=== PATIENT | female | born 1940 | race Caucasian/White ===

== ENCOUNTER 2023-12-07 18:42 | Inpatient (IN) | payer OTHER, SELFPAY ==
[2023-12-07] VITALS (24 sets, daily range): BP systolic 68–112; BP diastolic 38–90; BMI 28.8; BMI 29.6
--- NOTE | 2023-12-07 16:51 | ED.GENMED ---
History of Present Illness
General
Chief Complaint: Breathing Problem
Source: patient, records and ambulance crew
Time Seen by Provider: 12/07/23 16:42
Travel History
Have you had any contact with someone who has COVID-19?: Yes
Comment: self
Do you have any symptoms of coronavirus? Fever > 100 degrees, chills, cough, shortness of breath, sore throat, loss of taste or smell, muscle aches, or headache?: Yes
Symptoms:: sob
History of Present Illness
History of Present Illness:
83-year-old female with past medical history of dementia, previous stroke, hypertension, hyperlipidemia presenting to the emergency department via EMS from [facility] after testing positive for COVID 2 days ago, staff noticed patient becoming
more fatigued, difficulty breathing, generalized weakness and upon checking her pulse ox today noticed it was in the low 80s. Patient was placed on nasal cannula and route to the hospital and upon arrival was found to be at 81% on room air and
placed on 4 L via nasal cannula with good response into the low to mid 90s. Patient states she is feeling better since being started on the oxygen. She notes she has not been coughing very much. She is unsure if she was started on any oral
antiviral medications. She is also unsure of any fevers but notes no bowel or urinary symptoms or any other concerns.
Past History
Past History
ED Past Medical History: CVA, HTN, Hypercholesterolemia and Psychiatric
ED Past Surgical History: Other (Unknown)
Social History
Tobacco: Non-smoker
Alcohol: None
Drug: None
Personal:
Living: long term
Review of Systems
Review of Systems
All Other Systems: ROS reviewed and negative except as documented in HPI and ROS
Phy Exam
Physical Exam
Physical Exam:
GENERAL: Alert , in no apparent distress
EYE: conjunctiva clear
NECK: Supple, no significant adenopathy.
ENT: o/p clr, mmm.
CARDIAC: tachycardic rate and rhythm
LUNGS: Clear breath sounds bilaterally, no acute respiratory distress, no wheezes/rales/rhonchi, tachypneic
NEUROLOGICAL: Alert and oriented to place and self but unaware of the year or time
SKIN: Warm and dry, skin intact.
MUSCULOSKELETAL: well perfused.
PSYCH: Normal and appropriate interaction.
Scores
Heart Failure Risk
Heart Failure Risk Score: Not Applicable
Heart Score for Chest Pain Patients
STEMI patient?: Not applicable
Withdrawal Assessment of Alcohol
Withdrawal Assessment Completed?: Not applicable
Course
Orders/Labs/Results
Orders:
Orders
12/07/23 Dinner
Sodium, 2 Gram
At Your Request: Non-Participating
Fluid Restriction: 1440 mL/day (48 oz)
12/07/23 16:39
Electrocardiogram (*1) Urgent
Reason for Study: Other
Other Reason for Exam: Respiratory Distress
Cardiac Monitoring- Treatment ONCE
EKG- Treatment ONCE
IV Insert/Care/Rem.- Treatment PRN
O2 Therapy [RESP] Urgent
Titrate/Wean O2 to maintain O2 sat greater than (%): 93
Special Instructions: TO MAINTAIN CONTINUOUS O2 SATS >/= 93%
Pulse Ox/cont/shift [RESP] Urgent
Quantity: 1
Special Instructions: continuous pulse ox
12/07/23 16:45
Blood Culture Q30M
LIANNA Source: Blood/Venous
Specimen Description:
Comment: FROM SEPARATE SITES
Blood Culture Q30M
LIANNA Source: Blood/Venous
Specimen Description:
Comment: FROM SEPARATE SITES
12/07/23 16:46
Complete Blood Count/With Diff Urgent
Comprehensive Metabolic Panel Urgent
Iron Urgent
Lactic Acid Q4H
Comment: WITH 1ST SET OF BLOOD CULTURES,CANCEL 2ND LACTIC ACID IF FIRST <2
NT-proBNP Urgent
Total Iron Binding Urgent
Troponin I Urgent
12/07/23 16:49
CR Chest Portable - 1 View Urgent
Comment:
Reason For Exam: covid, hypoxia
Reason Study Needs to be Portable: Unable to Transport
12/07/23 16:50
Ferritin Urgent
Folate Urgent
Vitamin B12 Urgent
Comment: ADD ON
12/07/23 17:54
Furosemide [Lasix] 20 mg IV NOW STA
12/07/23 17:55
Potassium Chloride Powder [Klor-Con] 40 meq PO NOW STA
12/07/23 17:56
Admit/Transfer Patient As Directed
Co-Sign Provider:
Level of Care: Inpatient admission
Assign to:: IMU- Intermediate Care
Physician / Group: Adina
Diagnosis: Hypoxia, COVID, CHF
Reason for Hospitalization: oxygen, lasix
Expected length of stay greater than two midnights?: Yes
ELOS- Estimated Length of Stay in days: 3
I certify the patient meets the requirements for IP care: Yes
12/07/23 18:09
Code Status As Directed
Resuscitation Status: Do not resuscitate
Reached after discussion with pt or family/Healthcare POA: Yes
DNR Bracelet Application ONCE
12/07/23 18:34
Midodrine [ProAmatine] 5 mg PO NOW STA
12/07/23 18:37
Add On- LAB Routine
Tests Added?: iron, ferritin, tibc, folate, vit b12
12/07/23 18:48
COVID-19 Antigen Urgent
Source: Nasal Swab
12/07/23 22:00
Procalcitonin Urgent
PCT Algorithmm Indication: Respiratory
Troponin I Q6H
12/08/23 04:00
Troponin I Q6H
Abnormal Lab Results
12/07/23
16:46
WBC 18.7 H 10^3/uL
(4.8-10.8)
RBC 3.16 L 10^6/uL
(4.20-5.40)
Hgb 8.9 L g/dL
(12.0-16.0)
Hct 28.5 L %
(37.0-47.0)
MCHC 31.2 L g/dL
(33.0-37.0)
RDW 17.8 H %
(11.5-14.5)
Abs Immat Gran (auto) 0.2 H 10^3/uL
(0-0.05)
Absolute Neuts (auto) 15.8 H 10^3/uL
(1.4-6.5)
Absolute Monos (auto) 0.8 H 10^3/uL
(0.1-0.6)
Immature Gran % 1.1 H %
(0-0.5)
Neutrophils % 84.4 H %
(42.2-75.2)
Lymphocytes % 9.9 L %
(20.5-51.1)
Sodium 133 L mmol/L
(135-145)
Potassium 3.3 L mmol/L
(3.5-5.1)
Chloride 97 L mmol/L
(98-107)
BUN 39 H mg/dl
(7-17)
Glucose 109 H mg/dl
(70-99)
Calcium 7.8 L mg/dl
(8.4-10.2)
AST 39 H U/L
(14-36)
Alkaline Phosphatase 255 H U/L
(38-126)
Troponin I 0.502 H* ng/ml
Total Protein 4.9 L g/dl
(6.3-8.2)
Albumin 2.3 L g/dl
(3.5-5.0)
12/07/23 16:46
12/07/23 16:46
Vital Signs
Initial and Last Documented VS:
Initial Vital Signs
Pulse Ox
81
12/07/23 16:32
Last Documented Vital Signs
Temp Pulse Resp BP Pulse Ox
98.1 F 101 25 83/58 95
12/07/23 16:39 12/07/23 19:00 12/07/23 16:39 12/07/23 19:00 12/07/23 17:33
MDM/Problems Addressed
Differential Diagnosis Includes:
COVID, viral pneumonia, given active infection and symptoms that only started 2 days ago I do not have concern for PE, electrolyte disturbance
MDM/Problems Addressed:
83-year-old female with known COVID presenting to the emergency department for gradually worsening symptoms over the last 2 days, found to be hypoxic at the nursing facility and confirmed hypoxia on arrival here. Patient currently on 4 L with
improved oxygen saturation. Will continue with the 4 L for the time being. Lab work ordered. Anticipate admission.
*Radiology
Radiology exam reviewed: radiology read reviewed
*Pulse Oximetry
Patient hypoxic: yes
*EKG
Interpreted by ED Provider?: Yes
Comparison EKG: no comparison EKG present
Heart Rate: 95
Rate: normal
Rhythm: sinus arrhythmia
Interval: long QT
Ischemia: no ischemia
*Supervisor [employer] Interpretation
Rate: normal
Rhythm: sinus
*Critical Care Note
Total Time (30-74mins, 75-104mins- exclusive of procedures): Not Applicable
Patient Management
Discussion with other providers: Hospitalist
Escalation/DeEscalation of care consider admission/obs:
Hospitalist is aware and accepts patient for continued evaluation and treatment. Lab work was noted for leukocytosis with a leftward shift. Patient's chemistry reveals an elevated BNP and troponin. I do suspect there is a large component of
demand ischemia related. Chest x-ray shows small bilateral pleural effusions. Will admit to telemetry. Patient be kept on O2 for supportive care given her hypoxia.
ED Attending Note
-
Portions of this chart may have been created with voice recognition software.� Occasional wrong word or��sound alike� substitutions may have occurred due to the inherent limitations of voice recognition software.
Discharge Plan
Departure
Patient Disposition: Admit
Date of Disposition: 12/07/23
Time of Disposition: 17:13
Presentation/result/management discussed w/ accepting MD/DO: Hospitalist
Discharge Problem:
COVID-19, Hypoxia
Interventions
Interventions:
*Risk Screen - Suicide Last Done: 12/07/23 16:37
*General Assessment Last Done: 12/07/23 16:37
*Neglect/Abuse Screening Last Done: 12/07/23 16:37
ED- Fall Risk Assessment Last Done: 12/07/23 16:40
*ED COVID-19 Vaccine History Last Done: 12/07/23 16:37
ED- Cardiac Assessment Last Done: 12/07/23 16:40
ED- Pulmonary Assessment Last Done: 12/07/23 16:40
[2023-12-07 16:56] LABS: % Basophils 0.2 % (0-2); % Eosinophils 0.2 % (0-6); % Immature Granulocytes 1.1 % (0-0.5); % Lymphocytes 9.9 % (20.5-51.1); % Monocytes 4.2 % (1.7-9.3); % Neutrophils 84.4 % (42.2-75.2); Absolute Immature Granulocytes 0.2 10^3/uL (0-0.05); Absolute Lymphocytes 1.9 10^3/uL (1.2-3.4); Absolute Monocytes 0.8 10^3/uL (0.1-0.6); Absolute Neutrophils 15.8 10^3/uL (1.4-6.5); Hematocrit 28.5 % (37.0-47.0); Hemoglobin 8.9 g/dL (12.0-16.0); Mean Corp Hgb Conc. 31.2 g/dL (33.0-37.0); Mean Corpuscular Hgb 28.2 pg (27.0-31.0); Mean Corpuscular Volume 90.2 fL (81.0-99.0); Mean Platelet Volume 8.8 fL (7.4-10.4); Nucleated Red Blood Cells % 0.3 %; Platelet Count 362 10^3/uL (130-400); Red Blood Cell Count 3.16 10^6/uL (4.20-5.40); Red Cell Dist. Width 17.8 % (11.5-14.5); White Blood Cell Count 18.7 10^3/uL (4.8-10.8)
[2023-12-07 17:08] LABS: Lactic Acid 1.5 mmol/L (0.7-2.0)
[2023-12-07 17:09] LABS: ALT (SGPT) 18 U/L (0-35); AST (SGOT) 39 U/L (14-36); Albumin 2.3 g/dl (3.5-5.0); Alkaline Phosphatase 255 U/L (38-126); Blood Urea Nitrogen 39 mg/dl (7-17); Calcium 7.8 mg/dl (8.4-10.2); Carbon Dioxide 29 mmol/L (22-30); Chloride 97 mmol/L (98-107); Estimated Creatinine Clearance 51 ml/min; Glucose 109 mg/dl (70-99); Potassium 3.3 mmol/L (3.5-5.1); Sodium 133 mmol/L (135-145); Total Bilirubin 0.9 mg/dl (0.2-1.3); Total Protein 4.9 g/dl (6.3-8.2); eGFR > 60.00
[2023-12-07 17:26] LABS: NT-proBNP > 27000 pg/ml; Troponin I 0.502 ng/ml
--- NOTE | 2023-12-07 17:53 | HPS.HSE ---
Addendum entered and electronically signed by Roberth Holden MD 12/07/23 18:38:
I saw and examined the patient.
The PROPERTY CLERK or PA's note was reviewed and I agree with the note.
Comment: 83 y/o F, hx of dementia, stroke, HTN, HLD, recent intracranial hemorrhage about 3 months ago presents to ER from SNF with COVID+ test. Her Roomate was positive. Staff noticed patient becoming more fatigued, tired, with SOB. Her sats were
80s, recovered to mid 90s on 4L NC. Patient felt better after O2 application. No fever/chills, no CP.
In ER, CXR showing mild viral PNA vs CHF. Also patient with elevated BNP and given IV Lasix. Admitted for further management.
Physical Exam
General:�Comfortable and Conversant
HEENT:�Anicteric, Moist mucous membranes and Oxygen (Nasal Cannula)
Respiratory:�Clear (Anteriorly) and Non Labored Respirations
Cardiac:�S1/S2, Irregular Rhythm and Tachycardia (Slightly)
GI:�Soft, Non Tender and Non Distended
Rectal:�Deferred by Provider
Musculoskeletal:�No Clubbing, No Cyanosis and Other (+3 pitting edema bilateral lower extremities)
Skin:�Warm and Dry
Neuro:�Awake, Alert and Other (Right hemiparesis)
Assessment:
Acute hypoxic respiratory failure, multifactorial from COVID-19 infection, acute CHF
- currently on 4L, never O2 dependant, wean O2 as treatment evolves
Acute CHF, unknown subtype
Non-OH trop elevation in setting of Acute CHF, COVID, Hypoxia
- IV Lasix 20mg daily - requires intensive monitoring
- I/Os, weights, Lytes
- Cardiology consult
- trend troponin
- can use midodrine for BP support and may need pressors
COVID-19 infection
Leukocytosis
- CXR showing mild viral PNA
- isolation
- start Decadron
- consult ID for additional recs
- check cultures and procal, if positive, consider Abx
- supportive care
Hypokalemia
Hypervolemic hyponatremia
- supplement K+
- follow BMP
Parox A. Fib
- continue BB
- no OAC due to hx of ICH
Hx of intracranial hemorrhage with residual asphasia/dysphasia
- obtain records
- continue Keppra prophylaxis
- PT/OT/ST
anemia of unspecified chronicity
- obtain records
Hypothyroidism - continue LT4
Bipolar disorder
Anxiety/ADHD/Depression
- continue Trazodone/Zyprexa
- monitor for signs of agitation/psychosis from steroids
HLD - statin
Essential HTN
- hold Triamterene/HCTZ
DVT ppx: Lovenox
Code: Full
Original Note:
Family Physician
-
Family Physician: Jermaine Palumbo
Chief Complaint
-
Shortness of Breath
History of Present Illness
Patient is an 83 y/o female past medical history of recent intracranial hemorrhage, a-fib, hypertension, bipolar disorder and breast cancer who presents with hypoxia. Apparently patient's roommate at the [facility] developed upper respiratory symptoms a
few days ago and then test positive for COVID. The facility tested the patient 2 day ago at which time she tested positive, but she was not having any symptoms at that time. Daughter at the bedside notes they placed the patient on oxygen last
night due to increased shortness of breath. Daughter notes increased lower extremity edema. Patient has some residual expressive aphasia following her recent stroke therefore some history is limited. Patient denies any prior history of
Asthma/COPD, CAD or CHF.
Medical History
Past Medical History
Past Medical History: Reports Other
Additional Past Medical History:
Intracranial Hemorrhage with Residual Right Hemiparesis
Atrial Fibrillation
Essential Hypertension
Hyperlipidemia
Hypothyroidism
Bipolar Disorder
Stage IV Breast CA
Past Surgical History: Reports Other
Social History
Tobacco: Non-smoker
Alcohol: None
Living: Penitentiary
Family History
Family History: Not pertinent
Allergies / Home Medications
Allergies reflects when Allergies were last updated in [facility].
Home Medications with original date entered in [facility]
Allergy/Medication List:
Allergies
Allergy/AdvReac Type Severity Reaction Status Date / Time
Penicillins Allergy Rash Verified 12/07/23 16:33
Home Medications
acetaminophen 325 mg tablet 650 mg PO Q4H PRN mild pain/temp>100F 12/07/23
anastrozole 1 mg tablet 1 mg PO DAILY 12/07/23
ascorbic acid (vitamin C) 1,000 mg tablet 1,000 mg PO BID 12/07/23
atenolol 50 mg tablet 100 mg PO DAILY 12/07/23
atorvastatin 10 mg tablet 10 mg PO HS 12/07/23
bisacodyl 10 mg rectal suppository (Dulcolax (bisacodyl)) 10 mg MS DAILY PRN if mom ineffective after 24hrs 12/07/23
cholecalciferol (vitamin D3) 25 mcg (1,000 unit) tablet (Vitamin D3) 25 mcg PO DAILY 12/07/23
levetiracetam 100 mg/mL oral solution 500 mg PO BID 12/07/23
levothyroxine 50 mcg tablet (Synthroid) 50 mcg PO DAILY 12/07/23
magnesium hydroxide 400 mg/5 mL oral suspension (Milk of Magnesia) 30 ml PO DAILY PRN if no bm x 3 days 12/07/23
olanzapine 2.5 mg tablet 2.5 mg PO BID 12/07/23
sodium phosphates 19 gram-7 gram/118 mL enema (Fleet Enema) 118 ml MS DAILY PRN if dulcoalx ineffective after 24hrs 12/07/23
tramadol 50 mg tablet 50 mg PO Q6H PRN moderate to severe pain 12/07/23
trazodone 50 mg tablet 50 mg PO HS 12/07/23
triamcinolone acetonide 0.1 % topical cream 1 applic topical Q12H PRN rash/psoriasis 12/07/23
triamterene 37.5 mg-hydrochlorothiazide 25 mg capsule 1 cap PO DAILY 12/07/23
Review of Systems
-
Unable to obtain full review of systems at this time due to: Other (Expressive Aphasia)
Physical Exam
Vital Signs
Vital Signs
Temp Pulse Resp BP Pulse Ox
98.1 F 111 25 112/73 93
12/07/23 16:39 12/07/23 16:39 12/07/23 16:39 12/07/23 16:39 12/07/23 16:39
Physical Exam
General: Comfortable and Conversant
HEENT: Anicteric, Moist mucous membranes and Oxygen (Nasal Cannula)
Respiratory: Clear (Anteriorly) and Non Labored Respirations
Cardiac: S1/S2, Irregular Rhythm and Tachycardia (Slightly)
GI: Soft, Non Tender and Non Distended
Rectal: Deferred by Provider
Musculoskeletal: No Clubbing, No Cyanosis and Other (+3 pitting edema bilateral lower extremities)
Skin: Warm and Dry
Neuro: Awake, Alert and Other (Right hemiparesis)
Laboratory Results
-
12/07/23 16:46
12/07/23 16:46
Laboratory Results
Lactic Acid Cancelled 12/07/23 20:45
Total Bilirubin 0.9 mg/dl (0.2-1.3) 12/07/23 16:46
AST 39 U/L (14-36) H 12/07/23 16:46
ALT 18 U/L (0-35) 12/07/23 16:46
Alkaline Phosphatase 255 U/L (38-126) H 12/07/23 16:46
Troponin I 0.502 ng/ml H* 12/07/23 16:46
Data Reviewed
-
Diagnostic Radiology: Report Reviewed by me
Lab Data: Labs Reviewed by me
Old Records: Requested
Impression/Plan
-
Acute Hypoxic Respiratory Insufficiency suspect multifactorial related to COVID pneumonia and Acute Heart Failure
-Continue supplemental oxygen
Acute Heart Failure, unknown type
-Consult Cardiology
-Check Echo
-Continue to trend troponin
-Give dose of Midodrine Now to raise BP
-Start Lasix if BP improves
-Monitor Is&Os and Daily Weights
COVID-19 Viral Pneumonia
-Consult Infectious Disease
-Start Decadron and Paxlovid
-Check blood culture and procalcitonin - If procal is elevated start empiric antibiotics
Intracranial Hemorrhage in Sep/Oct 2023 with Residual Right Hemiparesis
-Attempt to obtain records from [place]
-Consult PT/OT and Speech
-Continue levetiracetam for seizure for prophylaxis
Atrial Fibrillation, unknown duration
-Monitor on Telemetry
Hyperlipidemia
-Hold statin while on Paxlovid
Hypothyroidism
-Continue Synthroid
Bipolar Disorder
-Continue Zyprexa
-Half usual dose of trazodone ordered while on Paxlovid
Stage IV Breast CA
-Continue anastrozole
DVT proph: Lovenox
Code Status: DNR
[2023-12-07] MEDS: KLOR-CON 40 MEQ PO (18:40)
[2023-12-07] MEDS: ProAmatine 5 MG PO (18:40)
[2023-12-07 19:21] LABS: COVID-19 Antigen Positive (Negative)
[2023-12-07 19:27] LABS: Iron 39 ug/dl (37-170)
[2023-12-07 19:36] LABS: Percent Saturation 19 % (20-50); Total Iron Binding Capacity 197 ug/dl (265-497)
[2023-12-07] MEDS: LEVOPHED 250 IV (19:42)
[2023-12-07 21:09] LABS: Folate 18.7 ng/ml (2.76-20); Vitamin B12 922 pg/ml (239-931)
[2023-12-07] MEDS: DECADRON 6 MG IV (21:29)
[2023-12-07] MEDS: PAXLOVID 2X150 MG-100 MG DOSE PACK 1 DOSE PO (21:30)
[2023-12-07] MEDS: KEPPRA 500 MG PO (21:30)
[2023-12-07] MEDS: DESYREL 25 MG PO (21:31)
[2023-12-07] MEDS: ZYPREXA 2.5 MG PO (21:31)
[2023-12-07] MEDS: VITAMIN C 1000 MG PO (21:31)
[2023-12-07 22:42] LABS: Troponin I 0.408 ng/ml
[2023-12-07 22:55] LABS: Procalcitonin 0.24 ng/ml (0.0-0.25)
[2023-12-08] VITALS (43 sets, daily range): BP systolic 74–117; BP diastolic 39–90; PULSE 90; O2SAT 92; BMI 29.5
--- NOTE | 2023-12-08 01:09 | PTCARENOTE ---
Addendum entered by Regla Guzman RN 12/08/23 05:58:
received* Remains on levo at 5 mcg/min.
Original Note:
Recieved patient as admit from ED. On 4 liters NC and levo. Levo order changed by web consultant provider to maintain maps above 65.
[2023-12-08 04:34] LABS: Hematocrit 31.7 % (37.0-47.0); Hemoglobin 9.8 g/dL (12.0-16.0); Mean Corp Hgb Conc. 30.9 g/dL (33.0-37.0); Mean Corpuscular Hgb 28.5 pg (27.0-31.0); Mean Corpuscular Volume 92.2 fL (81.0-99.0); Mean Platelet Volume 8.9 fL (7.4-10.4); Platelet Count 397 10^3/uL (130-400); Red Blood Cell Count 3.44 10^6/uL (4.20-5.40); Red Cell Dist. Width 17.7 % (11.5-14.5); White Blood Cell Count 21.5 10^3/uL (4.8-10.8)
[2023-12-08 05:05] LABS: ALT (SGPT) 17 U/L (0-35); AST (SGOT) 36 U/L (14-36); Albumin 2.6 g/dl (3.5-5.0); Alkaline Phosphatase 295 U/L (38-126); Blood Urea Nitrogen 37 mg/dl (7-17); Calcium 7.7 mg/dl (8.4-10.2); Carbon Dioxide 27 mmol/L (22-30); Chloride 102 mmol/L (98-107); Direct Bilirubin 0.8 mg/dl (0.0-0.4); Estimated Creatinine Clearance 59 ml/min; Glucose 123 mg/dl (70-99); HDL Cholesterol 40 mg/dl; LDL Cholesterol, Calculated 50 mg/dl; Magnesium 2.2 mg/dl (1.6-2.3); Sodium 133 mmol/L (135-145); Total Cholesterol 117 mg/dl (50-199); Total Protein 5.2 g/dl (6.3-8.2); Triglyceride 138 mg/dl (10-149); Very Low Density Lipoprotein 27 mg/dl (0-30); eGFR > 60.00
[2023-12-08] MEDS: SYNTHROID 50 MCG PO (05:34)
[2023-12-08 05:36] LABS: TSH Reflex To Free T4 2.47 uIU/ml (0.47-4.68)
--- NOTE | 2023-12-08 08:12 | CON.CAR ---
Addendum entered and electronically signed by Mikey Majano MD 12/08/23 10:26:
Patient seen and examined in collaboration with CRIME SCENE ANALYST; agree with below.
-83-year-old female with medical history as outlined below, including advanced dementia, recent intracranial hemorrhage, and paroxysmal atrial fibrillation (not on systemic anticoagulation secondary to recent intracranial hemorrhage); Cardiology was
consulted for CHF as her BNP was 27,000.
-The patient is currently hypotensive on Levophed; does not appear that she can be diuresed due to this.
-Once patient is off pressors, can place on Lasix 20 mg PO daily.
-Echo has been ordered by the primary team; regardless of findings, the patient will be managed conservatively from a cardiac standpoint as she is a poor candidate for any aggressive cardiac measures.
-Continue supportive care in terms of sepsis secondary to COVID infection.
-Cardiology will remain available on an as-needed basis.
Original Note:
Consultation
Consultation Request
Date/Time Consultation Requested: 12/07/232034
Date/Time Consultation Performed: 12/08/23 0810
Requesting Provider: Caterina ALONZO
Performing Provider: Ananya COBB for Dr. Majano
Reason for Consultation: CHF
Medical History
-
Chief Complaint: SOB, fatigue
History of Present Illness:
83 y/o female with dementia, stroke, hypertension, dyslipidemia, bipolar disorder, hypothyroidism, and recent ICH (was at [facility]), right hemiparesis, AFIB per son who is here for evaluation from [place] for fatigue and SOB. She tested positive for COVID19.
Her O2 sats were in 80's and BP's have been low. WBC elevated, BNP elevated, troponin abnormal. She is requiring Levophed for BP support. She is pleasant and in no acute distress.
Past Medical History
Past Medical History: Arrhythmias, CVA, HTN, Hypercholesterolemia, Hypothyroidism, Psychiatric and Other (as above)
Social History
Living: Long Term
Family History
Family History: Reviewed & Not Pertinent
Allergies / Home Medications
Allergy/AdvReac Type Severity Reaction Status Date / Time
Penicillins Allergy Rash Verified 12/07/23 16:33
Medication Instructions Recorded Confirmed Type
acetaminophen 325 mg tablet 650 mg PO Q4H PRN mild 12/07/23 12/07/23 History
pain/temp>100F
anastrozole 1 mg tablet 1 mg PO DAILY 12/07/23 12/07/23 History
ascorbic acid (vitamin C) 1,000 mg 1,000 mg PO BID 12/07/23 12/07/23 History
tablet
atenolol 50 mg tablet 100 mg PO DAILY 12/07/23 12/07/23 History
atorvastatin 10 mg tablet 10 mg PO HS 12/07/23 12/07/23 History
bisacodyl 10 mg rectal suppository 10 mg IN DAILY PRN if mom 12/07/23 12/07/23 History
(Dulcolax (bisacodyl)) ineffective after 24hrs
cholecalciferol (vitamin D3) 25 25 mcg PO DAILY 12/07/23 12/07/23 History
mcg (1,000 unit) tablet (Vitamin
D3)
levetiracetam 100 mg/mL oral 500 mg PO BID 12/07/23 12/07/23 History
solution
levothyroxine 50 mcg tablet 50 mcg PO DAILY 12/07/23 12/07/23 History
(Synthroid)
magnesium hydroxide 400 mg/5 mL 30 ml PO DAILY PRN if no bm x 3 12/07/23 12/07/23 History
oral suspension (Milk of Magnesia) days
olanzapine 2.5 mg tablet 2.5 mg PO BID 12/07/23 12/07/23 History
sodium phosphates 19 gram-7 118 ml IN DAILY PRN if dulcoalx 12/07/23 12/07/23 History
gram/118 mL enema (Fleet Enema) ineffective after 24hrs
tramadol 50 mg tablet 50 mg PO Q6H PRN moderate to 12/07/23 12/07/23 History
severe pain
trazodone 50 mg tablet 50 mg PO HS 12/07/23 12/07/23 History
triamcinolone acetonide 0.1 % 1 applic topical Q12H PRN 12/07/23 12/07/23 History
topical cream rash/psoriasis
triamterene 37.5 1 cap PO DAILY 12/07/23 12/07/23 History
mg-hydrochlorothiazide 25 mg
capsule
Review of Systems
-
History Source: Patient, Family and Other (and chart)
All other systems: Negative unless noted
Constitutional: Fatigue
Respiratory: Trouble Breathing
Physical Exam
Vital Signs
Temp Pulse Resp BP Pulse Ox
97.5 F 93 26 93/62 92
12/08/23 03:00 12/08/23 06:00 12/08/23 06:00 12/08/23 05:30 12/08/23 05:45
Lab Results
12/08/23 04:23
12/08/23 04:24
Troponin I Cancelled 12/08/23 04:00
Zih-Y-Mxypsagrxoc Pept > 75415 pg/ml 12/07/23 16:46
Physical Exam
General: Well Developed, Well Nourished and No Apparent Distress
HEENT: Normocephalic and Anicteric
Respiratory: Other (on O2 by N, diminished through out)
Cardiac: Irregular Rhythm and Peripheral Edema (moderate BLE edema)
Skin: Warm and Dry
Neuro: Awake, Alert and Other (forgetful, confused, pleasant and cooperative)
Psych: Calm
Impression / Plan
-
COVID-19:
-PNA by CXR
-on O2 by NC
-getting steroids
-ID consulted
-requiring Levophed for BP support. Continue- this medicine requires intensive monitoring for toxicity.
Acute HF (type unknown):
-BNP >25217, BLE edema noted (past month per son)
-IV diuresis when able. Currently BP won't support that, requiring levo. No respiratory distress. Hold lasix for now.
-echo ordered
Abnormal troponin:
-denies any CP
-acute non-ischemic myocardial injury in setting of covid-19, hypoxia, CHF
AFIB, paroxysmal:
-per son noted at [facility] when she also had hemorrhagic stroke. Suspect not on OAC for that reason.
-on monitor, WAP, MAT,, but does look like AFIB at times
Data Reviewed
-
EKG: Tracing Personally Visualized and interpreted (EKG SR with SA 95 BPM)
Radiology: Report Reviewed by me (CXR 12/07/23: 1. Small bilateral pleural effusions. 2. Bibasilar opacities may represent atelectasis or mild viral pneumonia in the setting of Covid 19 infection.)
Medical Tests (Nuc Med, Echo etc): Other (echo rodered)
Labs: Labs Reviewed by me
[2023-12-08] MEDS: ZYPREXA 2.5 MG PO ×2 (08:57→20:25)
[2023-12-08] MEDS: LASIX 20 MG IV (08:57)
[2023-12-08] MEDS: KEPPRA 500 MG PO ×2 (08:57→20:24)
[2023-12-08] MEDS: VITAMIN D3 (cholecalciferol) 25 MCG PO (08:57)
[2023-12-08] MEDS: PAXLOVID 2X150 MG-100 MG DOSE PACK 1 DOSE PO ×2 (08:58→20:24)
[2023-12-08] MEDS: VITAMIN C 1000 MG PO (08:59)
[2023-12-08] MEDS: ARIMIDEX 1 MG PO (09:14)
--- NOTE | 2023-12-08 09:15 | PTOTSP ---
Dysphagia Evaluation
Patient presents with functional oral stage of swallowing and no signs concerning for pharyngeal dysphagia or aspiration based on clinical bedside swallowing evaluation. Patient/son denied history of dysphagia.
Patient is at an elevated risk for dysphagia given PMH (dementia, stroke) in combination with acute illness (COVID) which may exacerbate confusion. She needed assistance with meal tray set up and verbal cues to self-feed due to confusion this date.
Expressive/receptive language and cognitive linguistic changes noted this session which son reported as baseline. RN aware.
Recommend:
1. Regular, Thin Liquids
2. Medications - whole in puree
3. Supervision and assistance (as needed)
4. Strategies: alternate solids and liquids to assist with oral clearance
5. Oral care 3-5x daily
6. No further dysphagia tx warranted at this time. Please reconsult as appropriate.
[2023-12-08] MEDS: LEVOPHED 250 IV (10:10)
--- NOTE | 2023-12-08 10:51 | CM ---
Patient from [facility] with Hx including dementia and stroke with Dx COVID-19, HF. O2 5L. Receiving IV Decadron, Levophed gtt, Paxlovid. Per nurse assessment; confused, forgetful. PT & OT Evals pending.
Spoke with Jennifer, s [facility]; the patient was residing there in LTC and on a private pay bed hold. Jennifer provided son Rene's contact info.
Spoke with [facility] (cell [phone]);
the patient has been at [facility] for a few months however she is unhappy there, crying and asking to go home. Son would like to honor his mother's wishes if possible and try to get her home with the supports she needs. He says that his
mother is currently able to transfer OOB to chair or w/c using a transfer board. She developed a sore on her heel which impeded her progress with therapy and they are using a gee lift.
The patient had been residing alone in a 2 story house with 2 ZAK prior to her stroke.
Her DME is a RW.
No prior VN
The only SNF she has been to is [facility].
PCP - Javier Henriquez
Pharmacy - [address]
Rene will discuss with his sister Jody Barboza who is also [employer] ([place], ph [phone]) about having the patient return home instead of SNF. Discussed hiring 24 hr caregivers - he agreed to receive a caregiver list to his email
[email or web address]. He agrees to a referral to [facility] if patient is able to go home. He understands CM can request hospital bed and w/c if needed. Son mentioned he is considering having ramp installed at her home. Son lives only a few
streets away from the patient.
Plan follow up with son re; d/c to SNF vs home with VN, caregivers & DME.
--- NOTE | 2023-12-08 11:54 | PTCARENOTE ---
Assumed care of pt from night RN, pt awake and alert, confusion noted and pt seems a bit manic, sentences hard to follow at times, pt does have hx of Bipolar Disorder. Son at bedside, per son, pt is a bit more confused than normal. Repositioned in
bed frequently and incontinence care completed as needed. Remains on 1440 FR, compliant. Will continue to monitor through shift.
--- NOTE | 2023-12-08 13:17 | WOUNDNOTE ---
[facility] RN note: Patient admitted with hypoxia, Covid 19
See H&P for complete history.
PMH: Dementia, CVA, CHF, HTN
Wound Location and type/assessment: Patient has been staying at SNF and was admitted to [facility] with hypoxia and Covid. Son present at assessment. Spoke to patient's RN prior to assessment. Patient has 4x4 unstageable wound of right heel and .2x2.
unstageable wound of left heel. Sacrum with stage 2 PI with multiple open areas and friction appearing skin. Per RN, patient has had multiple loose stools today.
Appetite: Poor, per patient report.
Pressure redistribution devices in place: Versa Care Air, frequent repositioning, fiber-filled boots
Plan: Betadine and adhesive foam applied to heels. Heels in fiber filled boots and patient turned on right semi-side lying position. Barrier cream applied to sacrum. CM made aware that patient will need air overlay if she goes home or air mattress
if she goes to SNF. Will confirm orders with hospitalist and update nurse. Patient has multiple comorbidities including poor appetite and limited mobility. Wounds may worsen and new wounds may develop even with optimal care. Updated care plan and
will follow as needed.
Note to case management of equipment requested for discharge: Air overlay or air mattress
Recommend follow up at wound care center upon discharge.
--- NOTE | 2023-12-08 14:35 | CON.ID ---
Consultation
-
Date/Time Consultation Requested: 12/07/20232034
Date/Time Consultation Performed: 12/08/2023 1430
Requesting Provider: Caterina Tolliver
Performing Provider: Dr. Means
Reason for Consultation: COVID-19
Chief Complaint / Past History
History of Present Illness
Danna Hdz is 83-year-old female being evaluated at the request of Caterina Tolliver regarding COVID 19 management. History is obtained from chart review, along with patient interview. The patient has a significant past medical history of
dementia and resides at a local senior living ([facility]) and was found to be COVID-positive by testing 3 days ago. Over the subsequent 48 hours she had increasing work of breathing, along with a pulse ox that was falling thus she was sent to
[facility] for further evaluation. Here she was found to have a pulse ox of 81% on room air, but increased to the mid 90s on 4 L O2. She has been started on Decadron and Paxlovid, and Infectious Diseases is asked to comment on any further
modalities that may be necessary.
At present she notes ongoing shortness of breath. She admits to a cough, but little phlegm production. She has never been vaccinated stating 'I do not believe in it'.
Past History
Additional Past Medical History:
Dementia
Hx CVA
HTN
Dyslipidemia
Stage IV breast cancer
Hypothyroid
Allergy History:
Penicillins Allergy (Verified 12/07/23 16:33)
Rash
Medications Reviewed: Yes
Current Antibiotics:
Paxlovid
Social History
Tobacco: Non-Smoker
Alcohol: None
Drug: None
Personal:
Living: Long Term
Employment: Not Employed
Family History
Family History: Not Pertinent
Review of Systems
Vital Signs
Temp Pulse Resp BP Pulse Ox
97.5 F 87 26 106/60 93
12/08/23 07:35 12/08/23 08:57 12/08/23 06:00 12/08/23 08:57 12/08/23 08:15
Physical Exam
Physical Exam
Constitutional: No Acute Distress, Comfortable, Chronically Ill and Non-toxic
Head: Normocephalic
Eyes: No Conjunctival Hemorrhage and Sclera Anicteric
Oral: No Thrush and No Ulcers
Cardiovascular: Regular Rate, S1/S2 and S3/S4
Pulmonary: Coarse and Other (Mildly labored. Nasal cannula at [address] Negative Wheezes or Rhonchi
Gastrointestinal: Soft, Non Distended and Normal Bowel Sounds
Skin: Negative Rash or Jaundice
Neurological: Awake and Alert
Psychological: Calm
Lab / Diagnostic Study Results
12/08/23 04:23
12/08/23 04:24
Abs Immat Gran (auto) 0.2 10^3/uL (0-0.05) H 12/07/23 16:46
Absolute Neuts (auto) 15.8 10^3/uL (1.4-6.5) H 12/07/23 16:46
Absolute Lymphs (auto) 1.9 10^3/uL (1.2-3.4) 12/07/23 16:46
Absolute Monos (auto) 0.8 10^3/uL (0.1-0.6) H 12/07/23 16:46
Absolute Basos (auto) 0.0 10^3/uL (0-0.2) 12/07/23 16:46
Immature Gran % 1.1 % (0-0.5) H 12/07/23 16:46
Neutrophils % 84.4 % (42.2-75.2) H 12/07/23 16:46
Lymphocytes % 9.9 % (20.5-51.1) L 12/07/23 16:46
Monocytes % 4.2 % (1.7-9.3) 12/07/23 16:46
Eosinophils % 0.2 % (0-6) 12/07/23 16:46
Basophils % 0.2 % (0-2) 12/07/23 16:46
Lactic Acid Cancelled 12/07/23 20:45
Procalcitonin 0.24 ng/ml (0.0-0.25) 12/07/23 22:03
Microbiology Results
Micro:
12/07/23 22:03 MRSA Screen - Pending
Nose
12/07/23 16:45 Blood Culture - Pending
Blood/Venous
12/07/23 16:45 Blood Culture - Pending
Blood/Venous
Imaging:
12/07/2023 CXR (portable): Small bilateral pleural effusions. Bibasilar opacities may represent atelectasis or mild viral pneumonia. Please see full dictation for additional detail.
Assessment / Plan
COVID-19
Hypoxemia
Leukocytosis
Dementia
Hx CVA
HTN
Dyslipidemia
Stage IV breast cancer
Hypothyroid
Recommendations:
Continue with Paxlovid along with Decadron. No need to start remdesivir at this time as I do not feel it would provide any additional benefit over Paxlovid.
Continue with supplemental oxygen. Wean as possible.
Continue with supportive measures.
Counseled patient and family that she may consider vaccination with one of the available vaccines (either mRNA or one of the more conventional vaccines) for COVID and 3 months time.
--- NOTE | 2023-12-08 15:30 | W.PN.HOSP.TC ---
Today's Communication/Plan
-
continue pressors and trial weaning
Decadron/Paxlovid
holding Lasix
wean O2
follow Cards/ID recs
Assessment / Plan
Assessment / Plan
Assessment:
Acute hypoxic respiratory failure, multifactorial from COVID-19 infection, acute CHF
- currently on 4L, never O2 dependant, wean O2 as treatment evolves
Acute CHF, unknown subtype
Non-FL trop elevation in setting of Acute CHF, COVID, Hypoxia
- received 1 dose IV Lasix with hypotension
- further Lasix on hold
- I/Os, weights, Lytes
- Cardiology following
- troponin peaked .502
Viral Septick shock from COVID
- on pressors - requires intensive monitoring. Wean as able
COVID-19 infection
Leukocytosis
- CXR showing mild viral PNA
- isolation
- continue Decadron and Paxlovid
- follow ID recs
- follow cultures. procal neg.
- supportive care
Hypokalemia
Hypervolemic hyponatremia
- supplement K+
- follow BMP
Parox A. Fib
- continue BB
- no OAC due to hx of ICH
Hx of intracranial hemorrhage with residual asphasia/dysphasia
- obtain records
- continue Keppra prophylaxis
- PT/OT/ST
anemia of unspecified chronicity
- obtain records
Hypothyroidism - continue LT4
Bipolar disorder
Anxiety/ADHD/Depression
- continue Trazodone/Zyprexa
- monitor for signs of agitation/psychosis from steroids
HLD - statin
Essential HTN
- hold Triamterene/HCTZ
DVT ppx: Lovenox
Code: Full
Total Critical Care Time 51 minutes. I was immediately available to the patient and staff. I personally examined, reviewed labs, diagnostic images/reports, interpretations, treatment plans, discussed patient care with other providers and family
or caregivers (if patient is unable to make decisions), entered orders as appropriate and documented the medical record.
Anticipated Discharge: > 48 hours
Subjective/Interval History
-
Date of Service: December 08, 2023
she remains pressor dependant, no complaints otherwise
Objective Data
-
Labs:
Laboratory Results
12/08/23 12/08/23
04:23 04:24
WBC 21.5 H
Hgb 9.8 L
Hct 31.7 L
Plt Count 397
Sodium 133 L
Potassium 4.0
Chloride 102
Carbon Dioxide 27
BUN 37 H
Creatinine 0.7
Glucose 123 H
Calcium 7.7 L
Total Bilirubin 1.0
AST 36
ALT 17
Alkaline Phosphatase 295 H
Vital Signs:
Vital Signs
Temp Pulse Resp BP Pulse Ox
97.5 F 87 26 106/60 93
12/08/23 07:35 12/08/23 08:57 12/08/23 06:00 12/08/23 08:57 12/08/23 08:15
I&O
12/07/23 12/08/23 12/09/23
06:59 06:59 06:59
Intake Total 240 / 240
Balance 240 / 240
Physical Exam
-
General: Appears Chronically Ill
HEENT: Normocephalic and Atraumatic
Respiratory: Negative Wheezes or Rales
Cardiac: Tachycardic
GI: Soft
Musculoskeletal: Edema, Right Lower Extrem and Edema, Left Lower Extrem
Neuro: AO x 3
Psych: Calm
Data Reviewed
-
Total Time Spent with Patient (in minutes): 51
Labs: Labs Reviewed by me
--- NOTE | 2023-12-08 15:51 | PTCARENOTE ---
RUE noted to be increasingly edematous, pt with Hx deficit on that R side. IV site does not appear to be infiltrated. Levo drip switched to LAC site and limb restriction bracelet applied to the R wrist. R arm elevated on pillow at this time.
[2023-12-08] MEDS: LOVENOX 40 MG SC (17:10)
[2023-12-08] MEDS: VITAMIN C PO (20:29)
[2023-12-08] MEDS: DECADRON 6 MG IV (20:37)
--- NOTE | 2023-12-08 21:26 | W.PN.UPDATE ---
Update Note
Progress Note Update
Preliminary gram stain from blood cx returned as Gram + cocci in clusters. may consider it a contaminant but will defer to ID and await final results. She is afebrile, lactic and procal are negative. Assessment appears to be viral COVID PNA and will
continue with paxlovid.She remains on low dose levophed for bp support.
[2023-12-08] MEDS: DESYREL 25 MG PO (21:46)
[2023-12-08] MEDS: TYLENOL 650 MG PO (21:47)
[2023-12-09] VITALS (22 sets, daily range): BP systolic 72–136; BP diastolic 53–108; BMI 28.6
--- NOTE | 2023-12-09 01:37 | PTCARENOTE ---
Addendum entered by Dolores Davis RN 12/09/23 06:39:
Tele monitor showing Afib heart rate 120s this morning. Pt found screaming 'help me' in bed. Pt stated she needed to 'cut this' as she was holding the BP wire. Re-oriented to place, time and situation. Support given. Reminded pt that her family will
be here to visit her later. 4L NC in place. Med sitter at bedside. Call dalton within reach.
Original Note:
Upon hourly rounding, pt was found with IV removed and bed. TIRE BEADER MAKER notified and placed new IV. Med sitter placed in room to prevent pt from removing IVs in the future. Levo gtt resumed.
[2023-12-09] MEDS: LEVOPHED 250 IV ×2 (03:10→20:14)
[2023-12-09 06:03] LABS: % Basophils 0.2 % (0-2); % Eosinophils 0.8 % (0-6); % Immature Granulocytes 1.4 % (0-0.5); % Lymphocytes 5.3 % (20.5-51.1); % Monocytes 2.5 % (1.7-9.3); % Neutrophils 89.8 % (42.2-75.2); Absolute Eosinophils 0.2 10^3/uL (0-0.7); Absolute Immature Granulocytes 0.3 10^3/uL (0-0.05); Absolute Lymphocytes 1.2 10^3/uL (1.2-3.4); Absolute Monocytes 0.6 10^3/uL (0.1-0.6); Absolute Neutrophils 20.5 10^3/uL (1.4-6.5); Hematocrit 27.3 % (37.0-47.0); Hemoglobin 8.5 g/dL (12.0-16.0); Mean Corp Hgb Conc. 31.1 g/dL (33.0-37.0); Mean Corpuscular Hgb 28.5 pg (27.0-31.0); Mean Corpuscular Volume 91.6 fL (81.0-99.0); Mean Platelet Volume 9.1 fL (7.4-10.4); Nucleated Red Blood Cells % 0.3 %; Platelet Count 335 10^3/uL (130-400); Red Blood Cell Count 2.98 10^6/uL (4.20-5.40); Red Cell Dist. Width 17.8 % (11.5-14.5); White Blood Cell Count 22.8 10^3/uL (4.8-10.8)
[2023-12-09] MEDS: SYNTHROID 50 MCG PO (06:20)
[2023-12-09 06:27] LABS: Blood Urea Nitrogen 42 mg/dl (7-17); Calcium 7.6 mg/dl (8.4-10.2); Carbon Dioxide 27 mmol/L (22-30); Chloride 99 mmol/L (98-107); Estimated Creatinine Clearance 58 ml/min; Glucose 136 mg/dl (70-99); Potassium 3.9 mmol/L (3.5-5.1); Sodium 133 mmol/L (135-145); eGFR > 60.00
[2023-12-09] MEDS: VITAMIN C 1000 MG PO ×2 (08:14→21:48)
[2023-12-09] MEDS: VITAMIN D3 (cholecalciferol) 25 MCG PO (08:15)
[2023-12-09] MEDS: ARIMIDEX 1 MG PO (08:16)
[2023-12-09] MEDS: KEPPRA 500 MG PO ×2 (08:16→21:49)
[2023-12-09] MEDS: ZYPREXA 2.5 MG PO ×2 (08:16→21:48)
[2023-12-09] MEDS: PAXLOVID 2X150 MG-100 MG DOSE PACK 1 DOSE PO ×2 (08:17→21:48)
--- NOTE | 2023-12-09 10:01 | PN.CDI ---
CDI
- -
CDI:
Physician Documentation Request
Admit Date: 12/07/23 18:42
Dear Doctor Adina,
Please review the following and provide your response in the progress notes.
Clinical Indicators:
12/08/23 13:17 - Wound Note
Wound Location and type/assessment:
#...4x4 unstageable wound of right heel
#...and .2x2. unstageable wound of left heel.
#Sacrum with stage 2 PI with multiple open areas and friction appearing skin.
Physician documentation of the type and location of wounds is required for compliant documentation. Based on the above clinical findings and your assessment, please provide the following in your progress note:
Yes, sacrum stage 2 PI and right and left heel unstageable wounds, POA
No, sacrum stage 2 PI and right and left heel unstageable wounds
Other
1. Location of the ulcer/wound, including laterality.
2. Type (etiology) of ulcer/wound:
- Diabetic ulcer
- Venous stasis ulcer
- Pressure (decubitus) ulcer
3. For a non-pressure ulcer, please indicate the depth/severity:
- Limited to the breakdown of skin
- With fat layer exposed
- With necrosis of muscle
- With necrosis of bone
4. If a pressure ulcer, please also include the stage* of the ulcer:
- Stage 1 - Skin intact, non-blanchable redness
- Stage 2 - Partial thickness loss of dermis, includes intact or open blister
- Stage 3 - Full thickness tissue not including bone, tendon or muscle
- Stage 4 - Full thickness tissue loss, including exposed bone, tendon or muscle
- Unstageable - Full thickness loss in which the base of the ulcer is covered by slough (yellow, jimenez, norris, green or brown) and/or eschar (jimenez, brown or black) in the wound bed.
Use of terms such as suspected, likely, concern for, or probable (associated with a specific diagnosis that is being evaluated, monitored, or treated as if it exists) are acceptable and can be coded in the inpatient setting, when documented at the
time of discharge.
Thank you,
Maia Power RN BSN CCDS
CDI Specialist
please contact via tiger text
Please use your independent medical judgment in providing your response.
*Source: National Pressure Ulcer Advisory Panel (NPUAP)
--- NOTE | 2023-12-09 12:17 | W.PN.HOSP.TC ---
Today's Communication/Plan
-
wean pressors as able as COVID tx continues
Assessment / Plan
Assessment / Plan
Assessment:
Acute hypoxic respiratory failure, multifactorial from COVID-19 infection, acute CHF
- currently on 4L, never O2 dependant, wean O2 as treatment evolves
Acute CHF, unknown subtype
Non-ME trop elevation in setting of Acute CHF, COVID, Hypoxia
- received 1 dose IV Lasix with hypotension
- further Lasix on hold
- I/Os, weights, Lytes
- Cardiology following
- troponin peaked .502
Viral Septick shock from COVID
- on pressors - requires intensive monitoring. Wean as able; trialed 3mcg but now back to 4mcg
COVID-19 infection
Leukocytosis
- CXR showing mild viral PNA
- isolation
- continue Decadron and Paxlovid
- follow ID recs
- follow cultures. procal neg.
- supportive care
Hypokalemia
Hypervolemic hyponatremia
- supplement K+
- follow BMP
Parox A. Fib
- continue BB
- no OAC due to hx of ICH
Hx of intracranial hemorrhage with residual asphasia/dysphasia
- obtain records
- continue Keppra prophylaxis
- PT/OT/ST
anemia of unspecified chronicity
- obtain records
Hypothyroidism - continue LT4
Bipolar disorder
Anxiety/ADHD/Depression
- continue Trazodone/Zyprexa
- monitor for signs of agitation/psychosis from steroids
HLD - statin
Essential HTN
- hold Triamterene/HCTZ
sacrum stage 2 PI and right and left heel unstageable wounds, POA
DVT ppx: Lovenox
Code: Full
Total Critical Care Time 38 minutes. I was immediately available to the patient and staff. I personally examined, reviewed labs, diagnostic images/reports, interpretations, treatment plans, discussed patient care with other providers and family
or caregivers (if patient is unable to make decisions), entered orders as appropriate and documented the medical record.
Anticipated Discharge: > 48 hours
Subjective/Interval History
-
Date of Service: December 09, 2023
remains on 4 mcg Levophed
remains on O2
she has no complaints, but staff/RN report she is confused at times
Objective Data
-
Labs:
Laboratory Results
12/09/23
05:30
WBC 22.8 H
Hgb 8.5 L
Hct 27.3 L
Plt Count 335
Sodium 133 L
Potassium 3.9
Chloride 99
Carbon Dioxide 27
BUN 42 H
Creatinine 0.7
Glucose 136 H
Calcium 7.6 L
Vital Signs:
Vital Signs
Temp Pulse Resp BP Pulse Ox
97.7 F 92 16 105/74 96
12/09/23 11:46 12/09/23 06:00 12/09/23 06:00 12/09/23 06:00 12/09/23 08:00
I&O
12/08/23 12/09/23 12/10/23
06:59 06:59 06:59
Intake Total 240 / 240 675 / 675
Balance 240 / 240 675 / 675
Physical Exam
-
General: No Apparent Distress
HEENT: Normocephalic and Atraumatic
Respiratory: Rhonchi
Cardiac: Regular Rhythm and S1/S2
GI: Soft
Musculoskeletal: No Edema
Neuro: Awake and Alert
Psych: Confused and Apparent Dementia
Data Reviewed
-
Total Time Spent with Patient (in minutes): 38
Labs: Labs Reviewed by me
--- NOTE | 2023-12-09 16:41 | CM ---
Patient from [facility] with Hx including dementia and stroke with Dx COVID-19, HF. O2 4L. Receiving IV Decadron, Levophed gtt, Paxlovid. Medsitter. Seen by wound care nurse. PT & OT recommend skilled rehab.
Phone call to [facility] [employer] (cell [phone]); left message requesting callback for d/c planning - call not returned today.
Plan follow up with son re; d/c to SNF vs home with VN, caregivers & DME.
[2023-12-09] MEDS: LOVENOX 40 MG SC (16:56)
[2023-12-09] MEDS: DECADRON 6 MG IV (19:36)
[2023-12-09] MEDS: DESYREL 25 MG PO (21:48)
[2023-12-10] VITALS (35 sets, daily range): BP systolic 71–119; BP diastolic 17–97; BMI 28.5
[2023-12-10 04:13] LABS: % Basophils 0.2 % (0-2); % Eosinophils 2.6 % (0-6); % Lymphocytes 5.6 % (20.5-51.1); % Monocytes 2.6 % (1.7-9.3); Absolute Eosinophils 0.5 10^3/uL (0-0.7); Absolute Immature Granulocytes 0.4 10^3/uL (0-0.05); Absolute Lymphocytes 1.1 10^3/uL (1.2-3.4); Absolute Monocytes 0.5 10^3/uL (0.1-0.6); Absolute Neutrophils 17.1 10^3/uL (1.4-6.5); Hematocrit 26.9 % (37.0-47.0); Hemoglobin 8.2 g/dL (12.0-16.0); Mean Corp Hgb Conc. 30.5 g/dL (33.0-37.0); Mean Corpuscular Hgb 27.8 pg (27.0-31.0); Mean Corpuscular Volume 91.2 fL (81.0-99.0); Nucleated Red Blood Cells % 0.3 %; Platelet Count 305 10^3/uL (130-400); Red Blood Cell Count 2.95 10^6/uL (4.20-5.40); Red Cell Dist. Width 17.9 % (11.5-14.5); White Blood Cell Count 19.6 10^3/uL (4.8-10.8)
[2023-12-10 04:36] LABS: Blood Urea Nitrogen 38 mg/dl (7-17); Calcium 7.8 mg/dl (8.4-10.2); Carbon Dioxide 28 mmol/L (22-30); Chloride 99 mmol/L (98-107); Estimated Creatinine Clearance 68 ml/min; Glucose 116 mg/dl (70-99); Potassium 3.7 mmol/L (3.5-5.1); Sodium 135 mmol/L (135-145); eGFR > 60.00
[2023-12-10] MEDS: SYNTHROID 50 MCG PO (05:42)
--- NOTE | 2023-12-10 06:34 | PTCARENOTE ---
Pt continues to be confused, hx dementia. Re-oriented as needed. Med sitter in room; pt had pulled out an iv the previous night. COVID-[address] in [address]. Tele showing Afib HR up to 120-130s when pt is anxious. 4-5L NC; pt
pulls out oxygen and desats to 70-80s. Frequently reminded in keep [address] Pills crushed in applesauce. Turned q2 hours, heels floated; foams changed. Incont of B&B; multiple episodes of soft BMs. PICC line patent, dressing intact. Levo gtt
able to be stopped per protocol this morning. BPs and MAPs are much improved. Bed alarm set for safety. Call dalton within reach.
[2023-12-10] MEDS: LEVOPHED 250 IV (08:40)
[2023-12-10] MEDS: ARIMIDEX 1 MG PO (08:40)
[2023-12-10] MEDS: FLUSH (NSS) 1 FLUSH IV (08:46)
[2023-12-10] MEDS: ZYPREXA 2.5 MG PO ×2 (08:47→21:30)
[2023-12-10] MEDS: KEPPRA 500 MG PO ×2 (08:47→21:29)
--- NOTE | 2023-12-10 09:04 | PTCARENOTE ---
Restarted levophed drip bp 74/58(64). Patient lethargic, easily arousable but falls right back to sleep. Will give oral medications when patient is more awake. Patient's daughter Jody in room at bedside and gave her a nursing update.
[2023-12-10] MEDS: PAXLOVID 2X150 MG-100 MG DOSE PACK 1 DOSE PO ×2 (12:49→21:29)
[2023-12-10] MEDS: VITAMIN C 1000 MG PO ×2 (12:55→21:29)
[2023-12-10] MEDS: VITAMIN D3 (cholecalciferol) 25 MCG PO (12:55)
--- NOTE | 2023-12-10 14:35 | W.PN.HOSP.TC ---
Today's Communication/Plan
-
wean pressors as able
steroids/Paxlovid
wean O2
prognosis guarded
Assessment / Plan
Assessment / Plan
Assessment:
Acute hypoxic respiratory failure, multifactorial from COVID-19 infection, acute CHF
- currently on 4-5L, never O2 dependant, wean O2 as treatment evolves
Acute CHF, unknown subtype
Non-VA trop elevation in setting of Acute CHF, COVID, Hypoxia
- received 1 dose IV Lasix with hypotension
- further Lasix on hold
- I/Os, weights, Lytes
- Cardiology following
- troponin peaked .502
Viral Septic shock from COVID
- on pressors - requires intensive monitoring. Wean as able; trialed 3mcg but now back to 4mcg on 12/09. On 12/10 weaned to off but went back to 2mcg.
COVID-19 infection
Leukocytosis
- CXR showing mild viral PNA
- isolation
- continue Decadron and Paxlovid
- follow ID recs
- follow cultures. procal neg.
- supportive care
Hypokalemia
Hypervolemic hyponatremia
- supplement K+
- follow BMP
Parox A. Fib
- continue BB
- no OAC due to hx of ICH
Hx of intracranial hemorrhage with residual asphasia/dysphasia
- obtain records
- continue Keppra prophylaxis
- PT/OT/ST
anemia of unspecified chronicity
- obtain records
Hypothyroidism - continue LT4
Bipolar disorder
Anxiety/ADHD/Depression
- continue Trazodone/Zyprexa
- monitor for signs of agitation/psychosis from steroids
HLD - statin
Essential HTN
- hold Triamterene/HCTZ
sacrum stage 2 PI and right and left heel unstageable wounds, POA
DVT ppx: Lovenox
Code: Full
Total Critical Care Time 34 minutes. I was immediately available to the patient and staff. I personally examined, reviewed labs, diagnostic images/reports, interpretations, treatment plans, discussed patient care with other providers and family
or caregivers (if patient is unable to make decisions), entered orders as appropriate and documented the medical record.
Anticipated Discharge: > 48 hours
Subjective/Interval History
-
Date of Service: December 10, 2023
remains on Levophed, more somnolent today, eating less
family at bedside, state patient has been making statements about letting her go
Objective Data
-
Labs:
Laboratory Results
12/10/23
03:49
WBC 19.6 H
Hgb 8.2 L
Hct 26.9 L
Plt Count 305
Sodium 135
Potassium 3.7
Chloride 99
Carbon Dioxide 28
BUN 38 H
Creatinine 0.6
Glucose 116 H
Calcium 7.8 L
Vital Signs:
Vital Signs
Temp Pulse Resp BP Pulse Ox
97.7 F 98 20 100/70 89
12/10/23 11:15 12/10/23 12:00 12/10/23 12:00 12/10/23 12:00 12/10/23 12:00
I&O
12/09/23 12/10/23 12/11/23
06:59 06:59 06:59
Intake Total 675 / 675
Balance 675 / 675
Physical Exam
-
General: No Apparent Distress
HEENT: Normocephalic
Respiratory: Negative Rales or Rhonchi
Cardiac: Regular Rhythm, S1/S2 and Tachycardic
GI: Soft
Psych: Calm and Confused
Data Reviewed
-
Total Time Spent with Patient (in minutes): 34
Labs: Labs Reviewed by me
[2023-12-10] MEDS: LOVENOX 40 MG SC (17:19)
--- NOTE | 2023-12-10 18:45 | PTCARENOTE ---
Patient confused. Med-sitter in room. When family not in room bed alarm on. Appetite poor. Patient can be difficult with care and taking medications. Patient actually did eat 50% of dinner tonight. Documentation does not reflect this. Patient
remains on levo drip @ 1mcg via left PICC. Patient currently in afib with heart rates 100 -120 mls. Patient required more o2 late in the afternoon midflow at 7L.
[2023-12-10] MEDS: DECADRON 6 MG IV (21:27)
[2023-12-10] MEDS: DESYREL 25 MG PO (21:31)
--- NOTE | 2023-12-10 23:51 | PTCARENOTE ---
Received pt at change of shift confused to time and knew where she was but thought she was 'in a game'. She is pleasantly confused. Took her medication with water and cola. She refused applesauce saying ' it will make me throw up', She was able
to take her pills well. She has the green heel boots on bilaterally. R heel dressing is intact but foul smelling. Sacral wound dressing is intact. Heart monitor looks like sinus tachycardia with frequent PACs and then atrial fibrillation with
ventricular rate up to 130 at times. Most of the time her rate is 86-100's. Remains on the Levophed drip at 1mcg/min.
[2023-12-11] VITALS (26 sets, daily range): BP systolic 63–117; BP diastolic 36–94; BMI 28.3
[2023-12-11] MEDS: SYNTHROID 50 MCG PO (06:06)
[2023-12-11 06:19] LABS: % Basophils 0.1 % (0-2); % Immature Granulocytes 2.5 % (0-0.5); % Lymphocytes 5.4 % (20.5-51.1); % Monocytes 2.2 % (1.7-9.3); % Neutrophils 89.8 % (42.2-75.2); Absolute Immature Granulocytes 0.4 10^3/uL (0-0.05); Absolute Lymphocytes 0.9 10^3/uL (1.2-3.4); Absolute Monocytes 0.4 10^3/uL (0.1-0.6); Absolute Neutrophils 15.1 10^3/uL (1.4-6.5); Hematocrit 26.2 % (37.0-47.0); Hemoglobin 8.2 g/dL (12.0-16.0); Mean Corp Hgb Conc. 31.3 g/dL (33.0-37.0); Mean Corpuscular Hgb 28.6 pg (27.0-31.0); Mean Corpuscular Volume 91.3 fL (81.0-99.0); Mean Platelet Volume 8.9 fL (7.4-10.4); Nucleated Red Blood Cells % 0.2 %; Platelet Count 284 10^3/uL (130-400); Red Blood Cell Count 2.87 10^6/uL (4.20-5.40); Red Cell Dist. Width 17.8 % (11.5-14.5); White Blood Cell Count 16.8 10^3/uL (4.8-10.8)
[2023-12-11 06:41] LABS: Blood Urea Nitrogen 33 mg/dl (7-17); Carbon Dioxide 31 mmol/L (22-30); Chloride 102 mmol/L (98-107); Estimated Creatinine Clearance 58 ml/min; Glucose 99 mg/dl (70-99); Potassium 3.5 mmol/L (3.5-5.1); Sodium 135 mmol/L (135-145); eGFR > 60.00
--- NOTE | 2023-12-11 09:22 | PTCARENOTE ---
Received patient from weight shifter. Patient resting comfortably in bed. AAO, mostly to self. Patient remains on 1mcg of Levo for MAP >65, will attempt to titrate. No events noted over night. No complaints of pain. Daughter at bedside. Will
attempt to get patient out to chair at request of daughter, gee lift. Call dalton in reach.
[2023-12-11] MEDS: KEPPRA 500 MG PO ×2 (09:48→21:40)
[2023-12-11] MEDS: ARIMIDEX 1 MG PO (09:48)
[2023-12-11] MEDS: VITAMIN C 1000 MG PO ×2 (09:48→21:40)
[2023-12-11] MEDS: VITAMIN D3 (cholecalciferol) 25 MCG PO (09:48)
[2023-12-11] MEDS: ZYPREXA 2.5 MG PO ×2 (09:48→21:40)
[2023-12-11] MEDS: PAXLOVID 2X150 MG-100 MG DOSE PACK 1 DOSE PO (10:14)
--- NOTE | 2023-12-11 13:57 | W.PN.HOSP.TC ---
Today's Communication/Plan
-
wean O2 - use spirometry if she is able
wean pressors
Assessment / Plan
Assessment / Plan
Assessment:
Acute hypoxic respiratory failure, multifactorial from COVID-19 infection, acute CHF
- currently on 4-5L, never O2 dependant, wean O2 as treatment evolves
Acute CHF, unknown subtype
Non-[place] trop elevation in setting of Acute CHF, COVID, Hypoxia
- received 1 dose IV Lasix with hypotension
- further Lasix on hold
- I/Os, weights, Lytes
- Cardiology following
- troponin peaked .502
Viral Septic shock from COVID
- on pressors - requires intensive monitoring. Wean as able; trialed 3mcg but now back to 4mcg on 12/09. On 12/10 weaned to off but went back to 1mcg. continue wean attempts.
COVID-19 infection
Leukocytosis
- CXR showing mild viral PNA
- isolation
- continue Decadron and Paxlovid
- follow ID recs
- follow cultures. procal neg.
- supportive care
Hypokalemia
Hypervolemic hyponatremia
- supplement K+
- follow BMP
Parox A. Fib
- continue BB
- no OAC due to hx of ICH
Hx of intracranial hemorrhage with residual asphasia/dysphasia
- obtain records
- continue Keppra prophylaxis
- PT/OT/ST
anemia of unspecified chronicity
- obtain records
Hypothyroidism - continue LT4
Bipolar disorder
Anxiety/ADHD/Depression
- continue Trazodone/Zyprexa
- monitor for signs of agitation/psychosis from steroids
HLD - statin
Essential HTN
- hold Triamterene/HCTZ
sacrum stage 2 PI and right and left heel unstageable wounds, POA
DVT ppx: Lovenox
Code: Full
Total Critical Care Time 34 minutes. I was immediately available to the patient and staff. I personally examined, reviewed labs, diagnostic images/reports, interpretations, treatment plans, discussed patient care with other providers and family
or caregivers (if patient is unable to make decisions), entered orders as appropriate and documented the medical record.
Anticipated Discharge: Today
Subjective/Interval History
-
Date of Service: December 11, 2023
on 5L from 7L
on Levo 1
sitting in chair
confused
Objective Data
-
Labs:
Laboratory Results
12/11/23
05:41
WBC 16.8 H
Hgb 8.2 L
Hct 26.2 L
Plt Count 284
Sodium 135
Potassium 3.5
Chloride 102
Carbon Dioxide 31 H
BUN 33 H
Creatinine 0.7
Glucose 99
Calcium 8.0 L
Vital Signs:
Vital Signs
Temp Pulse Resp BP Pulse Ox
98.4 F 108 20 113/94 97
12/11/23 11:05 12/11/23 07:00 12/11/23 07:00 12/11/23 06:00 12/11/23 07:00
I&O
12/10/23 12/11/23 12/12/23
06:59 06:59 06:59
Intake Total 922 / 922
Balance 922 / 922
Physical Exam
-
General: No Apparent Distress
HEENT: Normocephalic and Atraumatic
Respiratory: Negative Wheezes
Cardiac: Regular Rhythm and S1/S2
GI: Soft
Genito-urinary: No Costovertebral Tender
Neuro: Awake and Alert
Psych: Confused
Data Reviewed
-
Total Time Spent with Patient (in minutes): 34
Labs: Labs Reviewed by me
[2023-12-11] MEDS: LOVENOX 40 MG SC (17:59)
[2023-12-11] MEDS: DECADRON 6 MG IV (21:35)
[2023-12-11] MEDS: DESYREL 25 MG PO (21:39)
[2023-12-11] MEDS: CORDARONE 518 MG IV (22:28)
[2023-12-12] VITALS (19 sets, daily range): BP systolic 85–114; BP diastolic 61–90; BMI 30.2
--- NOTE | 2023-12-12 00:17 | PTCARENOTE ---
Pt AAOx1, afib on residential monitor. Rate 90-120. Amio gtt placed per MD order. This RN heard pt calling out for help. This RN assessed pt and reoriented pt to situation as much as possible. Oriented to call dalton and video monitoring in place for pt
safety.
[2023-12-12 05:44] LABS: % Basophils 0.2 % (0-2); % Eosinophils 0.4 % (0-6); % Immature Granulocytes 2.3 % (0-0.5); % Lymphocytes 4.6 % (20.5-51.1); % Monocytes 2.8 % (1.7-9.3); % Neutrophils 89.7 % (42.2-75.2); Absolute Eosinophils 0.1 10^3/uL (0-0.7); Absolute Immature Granulocytes 0.4 10^3/uL (0-0.05); Absolute Lymphocytes 0.8 10^3/uL (1.2-3.4); Absolute Monocytes 0.5 10^3/uL (0.1-0.6); Absolute Neutrophils 15.9 10^3/uL (1.4-6.5); Hematocrit 25.8 % (37.0-47.0); Mean Corpuscular Hgb 28.5 pg (27.0-31.0); Mean Corpuscular Volume 91.8 fL (81.0-99.0); Mean Platelet Volume 8.9 fL (7.4-10.4); Nucleated Red Blood Cells % 0.2 %; Platelet Count 269 10^3/uL (130-400); Red Blood Cell Count 2.81 10^6/uL (4.20-5.40); White Blood Cell Count 17.7 10^3/uL (4.8-10.8)
[2023-12-12] MEDS: SYNTHROID 50 MCG PO (06:10)
[2023-12-12 06:11] LABS: Blood Urea Nitrogen 34 mg/dl (7-17); Calcium 8.2 mg/dl (8.4-10.2); Carbon Dioxide 30 mmol/L (22-30); Chloride 102 mmol/L (98-107); Estimated Creatinine Clearance 60 ml/min; Glucose 120 mg/dl (70-99); Potassium 3.7 mmol/L (3.5-5.1); Sodium 135 mmol/L (135-145); eGFR > 60.00
--- NOTE | 2023-12-12 08:31 | W.PN.HOSP.TC ---
Today's Communication/Plan
-
Wean oxygen as able
Assessment / Plan
Assessment / Plan
Gen-awake, alert, NAD
HEENT-NC, AT, anicteric, clear oral mm
Neck-supple
CV-reg, no M, +S1/S2
Lungs-clear B/L
Abd-soft, NT, ND
Ext-no edema
Musculoskeletal-no cyanosis, clubbing
Skin-warm and dry
Neuro-grossly non-focal
Psych-calm, cooperative
Acute hypoxic respiratory failure -multifactorial from COVID-19 infection, acute CHF.
- currently on 4-5L, never O2 dependant, wean O2 as treatment evolves
Acute CHF preserved EF exacerbation -echocardiogram done 12/08 showed LVEF 60 to 65%, moderate to severe MR, moderate TR. Cardiology evaluated the patient and signed off. They recommend Lasix 20 mg p.o. daily once hemodynamically stable. Still
hypotensive this morning. Cardiology recommends conservative treatment as she is a poor candidate for aggressive cardiac measures.
Her body weight is recorded at 79 kg today, unclear how accurate this is as she was 74 kg yesterday. 78kg on admission.
Non-[place] trop elevation - in setting of Acute CHF, COVID, Hypoxia. Troponin has peaked.
Viral Septic shock from COVID -shock improving. Off vasopressors.
COVID-19 infection -completed course of Paxlovid. Continue steroids. She is not vaccinated. I spoke with patient and son today, recommend vaccination in 3 months.
Hypokalemia -resolved.
Hypervolemic hyponatremia -resolved.
Parox A. Fib
- continue BB
- no OAC due to hx of ICH
Hx of intracranial hemorrhage with residual asphasia/dysphasia
- obtain records
- continue Keppra prophylaxis
- PT/OT/ST
Normocytic anemia of unspecified chronicity
- obtain records
Hypothyroidism - continue levothyroxine
Bipolar disorder
Anxiety/ADHD/Depression
- continue Trazodone/Zyprexa
- monitor for signs of agitation/psychosis from steroids
Hyperlipidemia- statin
Essential HTN- hold Triamterene/HCTZ due to hyponatremia
sacrum stage 2 PI and right and left heel unstageable wounds, POA
DNR
Dispo -plan to discharge to SNF versus home with VN when medically stable.
Anticipated Discharge: Within 24 hours
Subjective/Interval History
-
Date of Service: December 12, 2023
Patient seen and examined. No complaints. Son at the bedside.
Objective Data
-
Labs:
Laboratory Results
12/12/23
05:22
WBC 17.7 H
Hgb 8.0 L
Hct 25.8 L
Plt Count 269
Sodium 135
Potassium 3.7
Chloride 102
Carbon Dioxide 30
BUN 34 H
Creatinine 0.7
Glucose 120 H
Calcium 8.2 L
Vital Signs:
Vital Signs
Temp Pulse Resp BP Pulse Ox
96.4 F L 80 21 105/69 92
12/12/23 05:50 12/12/23 05:00 12/12/23 05:00 12/12/23 05:00 12/12/23 05:00
I&O
12/11/23 12/12/23 12/13/23
06:59 06:59 06:59
Intake Total 2 / 922 /
Balance 2 / 2 /
Review of Systems
-
Unable to obtain full review of systems at this time due to: Dementia and Acuity
History Source: Patient
All other systems: Reviewed and negative
[2023-12-12] MEDS: KEPPRA 500 MG PO ×2 (08:41→20:46)
[2023-12-12] MEDS: ZYPREXA 2.5 MG PO ×2 (08:41→20:51)
[2023-12-12] MEDS: ARIMIDEX 1 MG PO (08:42)
[2023-12-12] MEDS: ZYPREXA PO (08:42)
[2023-12-12] MEDS: VITAMIN C 1000 MG PO ×2 (08:42→20:44)
[2023-12-12] MEDS: VITAMIN D3 (cholecalciferol) 25 MCG PO (08:42)
--- NOTE | 2023-12-12 10:33 | CM ---
Addendum entered by Lillie Rodríguez RN 12/12/23 12:02:
PT on hold today due to patient desaturating. O2 9L midflow.
Patient declined by [facility] [employer].
Spoke with [facility]; no available bed.
[facility]
Daughter updated no accepting SNFs from the 3 referrals. Daughter prefers patient to go home with hospital bed (with air mattress), gee lift, w/c and VN - no agency preference. Patient's home address: [address] [place] [address], [facility] [id number].
Referral to [facility]. Discussed patient status and DME needs - agree to wait to order DME once patient less acute/closer to d/c. Agreed patient would need 2 caregivers if gee lift used in the home.
Plan follow up with daughter re; caregiver needs.
Plan probable home with [facility], with DME, with caregivers.
Original Note:
Patient from [facility] with Hx including dementia, bipolar disorder and stroke with Dx COVID-19, HF, sacral and heel wounds. O2 5L midflow. Receiving IV Amiodarone, IV Decadron. Per nurse assessment; confused. Yang. PT & OT 12/08
recommend skilled rehab.
Spoke with patient's daughter Jody; she and her brother have been visiting here every day. Jody is interested in 3 SNFs for rehab: [facility] (first choice), [facility] and [facility]. If patient cannot get into one of their
preferred SNFs then they would like to take the patient home and daughter/son would be the caregivers. Discussed that patient would need 24 hr supervision at home and daughter interested in considering hiring a caregiver- caregiver list sent to
her email [email or web address].
SNF referrals placed.
Phone call to [facility], [facility] requesting response to referral.
Plan follow up SNF referrals.
--- NOTE | 2023-12-12 10:58 | W.PN.ID1 ---
Date of Service
Date of Service: December 12, 2023
Today's Communication
Observe off Paxlovid.
Assessment / Plan
COVID-19
Hypoxemia
Leukocytosis
Dementia
Hx CVA
HTN
Dyslipidemia
Stage IV breast cancer
Hypothyroid
Recommendations:
Patient has completed a 5-day course of Paxlovid
Continue Decadron.
Continue with supplemental oxygen. Wean as possible.
Continue with supportive measures.
Monitor white count and temperatures.
CXR in 4 to 6 weeks time.
Previously counseled patient and family that she may consider vaccination with one of the available Covid-19 vaccines (either mRNA or one of the more conventional vaccines) in 3 months time.
����������������������������������������������������������
Chief Complaint
-: Other (Covid-19)
Subjective / Review of Systems
Patient seen and examined. Reports breathing comfortable.
Review of Systems: No Fever and No Chills
Vital Signs / Physical Exam
Vital Signs
Vital Signs
Temp Pulse Resp BP Pulse Ox
97.5 F 113 29 98/72 95
12/12/23 07:40 12/12/23 10:00 12/12/23 10:00 12/12/23 10:00 12/12/23 10:52
Physical Exam
Constitutional: No Acute Distress, Comfortable, Chronically Ill and Non-toxic
Eyes: No Conjunctival Hemorrhage and Sclera Anicteric
Cardiovascular: Irregular Rate and S1/S2; Negative S3/S4
Pulmonary: Coarse and Other (mid-Flow O2 in place.); Negative Wheezes
Gastrointestinal: Soft and Non Distended
Objective Data
Lab Data
Lab Results
12/12/23 05:22
12/12/23 05:22
Estimated Creat Clear 60 ml/min 12/12/23 05:22
Lactic Acid Cancelled 12/07/23 20:45
Total Bilirubin 1.0 mg/dl (0.2-1.3) 12/08/23 04:24
AST 36 U/L (14-36) 12/08/23 04:24
ALT 17 U/L (0-35) 12/08/23 04:24
Alkaline Phosphatase 295 U/L (38-126) H 12/08/23 04:24
Most recent labs reviewed.
Micro Results:
12/07/23 16:45 Blood Culture - Preliminary
Blood/Venous No Growth in 4 days- Final report to follow
12/07/23 16:45 Blood Culture - Preliminary
Blood/Venous Coagulase neg. staphylococcus
Additional testing on request
Gram Stain - Preliminary
12/07/23 22:03 MRSA Screen - Final
Nose No Methicillin Resistant Staphylococcus aureus isolated.
Imaging:
12/09/2023 CXR (portable): Unchanged small left basilar opacities.
12/07/2023 CXR (portable): Small bilateral pleural effusions. Bibasilar opacities may represent atelectasis or mild viral pneumonia. Please see full dictation for additional detail.
--- NOTE | 2023-12-12 13:23 | PTCARENOTE ---
Rec'd pt this AM. Son at bedside since 0800. pt O2 between 5-8L MF NC. BP 89/63 MAP 72. MD aware. Remains on Amio drip with HR 99. Pt very lethargic and weak. Confused. Son repeatedly asking for pt to get OOB and sit in chair. Pt complains of some
dizziness when sitting all the say up in bed to prepare to eat her meals. RN educated son that Pt's BP is low, pt is very weak and requires a lot of O2. will get pt OOB when more stable. RN also educated son on importance of taking care of himself
as well as he has been in her room for over 5 hours with no food. He states that he will be leaving around 2pm and will get food then. Provided emotional support.
[2023-12-12] MEDS: LOVENOX 40 MG SC (18:04)
[2023-12-12] MEDS: DESYREL 25 MG PO (20:46)
[2023-12-12] MEDS: DECADRON 6 MG IV (20:47)
[2023-12-13] VITALS (14 sets, daily range): BP systolic 75–128; BP diastolic 54–81; BMI 28.5
--- NOTE | 2023-12-13 03:48 | PTCARENOTE ---
Addendum entered by Lorena Brownlee 12/13/23 05:42:
Upon arousal to check DW, pt much more arousable and alert. Able to converse with staff and swallow PO synthroid crushed in applesauce.
Original Note:
Assumed care of pt at change of shift. 91% on 7L O2. Pt remains afib on potline monitor, rate 80s-90s, some low 100s. BPs 80s-90s systolic. MAPs over 65. MOLD CAPPER HELPER Jose Juan aware. This RN removed amio gtt d/t 18hrs at subsequent dose of 0.5mg and consult
with MOLD CAPPER HELPER. Pt very lethargic/drowsy, follows commands and answers questions, but does not open eyes. This is a notable change from this RN's assessment of pt yesterday. Yesterday pt was alert, curious about care and asking questions. This RN bladder
scanned pt for 739mL and st cathed with output of 650mL. Following bladder scan several hours later with no void, 122mL. Call dalton placed within pt reach, bed alarm in place, remote video monitoring in place.
[2023-12-13 04:01] LABS: % Basophils 0.2 % (0-2); % Immature Granulocytes 2.5 % (0-0.5); % Lymphocytes 3.8 % (20.5-51.1); % Neutrophils 90.5 % (42.2-75.2); Absolute Immature Granulocytes 0.4 10^3/uL (0-0.05); Absolute Lymphocytes 0.6 10^3/uL (1.2-3.4); Absolute Monocytes 0.5 10^3/uL (0.1-0.6); Hematocrit 25.5 % (37.0-47.0); Hemoglobin 7.7 g/dL (12.0-16.0); Mean Corp Hgb Conc. 30.2 g/dL (33.0-37.0); Mean Corpuscular Hgb 28.1 pg (27.0-31.0); Mean Corpuscular Volume 93.1 fL (81.0-99.0); Mean Platelet Volume 9.3 fL (7.4-10.4); Nucleated Red Blood Cells % 0.2 %; Platelet Count 258 10^3/uL (130-400); Red Blood Cell Count 2.74 10^6/uL (4.20-5.40); Red Cell Dist. Width 17.9 % (11.5-14.5); White Blood Cell Count 15.4 10^3/uL (4.8-10.8)
[2023-12-13 04:23] LABS: Blood Urea Nitrogen 29 mg/dl (7-17); Calcium 8.1 mg/dl (8.4-10.2); Carbon Dioxide 33 mmol/L (22-30); Chloride 101 mmol/L (98-107); Estimated Creatinine Clearance 60 ml/min; Glucose 120 mg/dl (70-99); Magnesium 2.1 mg/dl (1.6-2.3); Potassium 3.5 mmol/L (3.5-5.1); Sodium 136 mmol/L (135-145); eGFR > 60.00
[2023-12-13] MEDS: SYNTHROID 50 MCG PO (05:25)
[2023-12-13] MEDS: ZYPREXA PO (07:07)
--- NOTE | 2023-12-13 07:57 | W.PN.HOSP.TC ---
Today's Communication/Plan
-
Add midodrine
Wean oxygen as able
Assessment / Plan
Assessment / Plan
Gen-awake, alert, NAD
HEENT-NC, AT, anicteric, clear oral mm
Neck-supple
CV-reg, no M, +S1/S2
Lungs-clear B/L
Abd-soft, NT, ND
Ext-no edema
Musculoskeletal-no cyanosis, clubbing
Skin-warm and dry
Neuro-grossly non-focal
Psych-calm, cooperative
Acute hypoxic respiratory failure -multifactorial from COVID-19 infection, acute CHF. Currently on 6 L nasal cannula oxygen, wean down as able. Discussed with nursing.
Acute CHF preserved EF exacerbation -BNP was greater than 27,000 on admission. Echocardiogram done 12/08 showed LVEF 60 to 65%, moderate to severe MR, moderate TR. Cardiology evaluated the patient and signed off. They recommend Lasix 20 mg p.o.
daily once hemodynamically stable. Still hypotensive this morning. Cardiology recommends conservative treatment as she is a poor candidate for aggressive cardiac measures.
Weight is 75 kg today.
Non-[place] trop elevation - in setting of Acute CHF, COVID, Hypoxia. Troponin has peaked.
Viral Septic shock from COVID -still relatively hypotensive this morning. Will add midodrine.
COVID-19 infection -completed course of Paxlovid. Continue steroids. She is not vaccinated. I spoke with patient and son today, recommend vaccination in 3 months.
Hypokalemia -resolved.
Hypervolemic hyponatremia -resolved.
Parox A. Fib
- continue BB
- no OAC due to hx of ICH
Hx of intracranial hemorrhage with residual asphasia/dysphasia
- obtain records
- continue Keppra prophylaxis
- PT/OT/ST
Normocytic anemia of unspecified chronicity
- obtain records
Hypothyroidism - continue levothyroxine
Bipolar disorder
Anxiety/ADHD/Depression
- continue Trazodone/Zyprexa
- monitor for signs of agitation/psychosis from steroids
Hyperlipidemia- statin
Essential HTN- hold Triamterene/HCTZ due to hyponatremia
sacrum stage 2 PI and right and left heel unstageable wounds, POA
DNR
Dispo -plan to discharge to SNF versus home with VN when medically stable.
Updated patient's son at the bedside.
Anticipated Discharge: > 48 hours
Subjective/Interval History
-
Date of Service: December 13, 2023
Patient seen and examined. Denies shortness of breath. No complaints.
Objective Data
-
Labs:
Laboratory Results
12/13/23
03:36
WBC 15.4 H
Hgb 7.7 L
Hct 25.5 L
Plt Count 258
Sodium 136
Potassium 3.5
Chloride 101
Carbon Dioxide 33 H
BUN 29 H
Creatinine 0.7
Glucose 120 H
Calcium 8.1 L
Vital Signs:
Vital Signs
Temp Pulse Resp BP Pulse Ox
97.6 F 89 15 89/69 97
12/13/23 02:53 12/13/23 06:00 12/13/23 06:00 12/13/23 06:00 12/13/23 06:00
I&O
12/12/23 12/13/23 12/14/23
06:59 06:59 06:59
Intake Total 209 / 209
Output Total 650 / 650
Balance 209 / 209 -650 / -650
Review of Systems
-
History Source: Patient
All other systems: Reviewed and negative
[2023-12-13] MEDS: VITAMIN D3 (cholecalciferol) 25 MCG PO (08:06)
[2023-12-13] MEDS: KEPPRA 500 MG PO ×2 (08:06→20:38)
[2023-12-13] MEDS: VITAMIN C 1000 MG PO ×2 (08:06→20:40)
[2023-12-13] MEDS: ZYPREXA 2.5 MG PO ×2 (08:07→20:39)
[2023-12-13] MEDS: ARIMIDEX 1 MG PO (08:07)
[2023-12-13] MEDS: ProAmatine 10 MG PO ×3 (08:08→17:07)
--- NOTE | 2023-12-13 09:49 | W.PN.UPDATE ---
Update Note
Progress Note Update
Called by nurse at the request of primary service for amiodarone recommendation.
Transition from amiodarone drip to amiodarone 200 mg daily.
[2023-12-13] MEDS: PACERONE 200 MG PO (10:31)
--- NOTE | 2023-12-13 13:00 | W.PN.ID1 ---
Date of Service
Date of Service: December 13, 2023
Today's Communication
Continue to observe off antivirals.
Assessment / Plan
COVID-19
Hypoxemia
Leukocytosis
Dementia
Hx CVA
HTN
Dyslipidemia
Stage IV breast cancer
Hypothyroid
Recommendations:
Patient has completed a 5-day course of Paxlovid
Continue Decadron.
Continue with supplemental oxygen. Wean as possible. Currently on 6 L nasal cannula.
Continue with supportive measures.
Monitor white count and temperatures.
CXR in 4 to 6 weeks time.
Previously counseled patient and family that she may consider vaccination with one of the available Covid-19 vaccines (either mRNA or one of the more conventional vaccines) in 3 months time.
����������������������������������������������������������
Chief Complaint
-: Other (Covid-19)
Subjective / Review of Systems
Review of Systems: No Fever, No Chills, Cough (Slight) and No Sputum Production
Vital Signs / Physical Exam
Vital Signs
Vital Signs
Temp Pulse Resp BP Pulse Ox
97.6 F 89 17 97/54 93
12/13/23 07:30 12/13/23 12:18 12/13/23 08:00 12/13/23 12:18 12/13/23 11:43
Physical Exam
Constitutional: Comfortable, Chronically Ill and Non-toxic
Eyes: Sclera Anicteric
Cardiovascular: Irregular Rate and S1/S2; Negative S3/S4
Pulmonary: Non Labored and Other (On 6 L O2 via nasal cannula)
Gastrointestinal: Soft, Non Tender and Non Distended
Skin: Warm and Dry; Negative Jaundice
Neurological: Awake and Alert
Psychological: Calm
Objective Data
Lab Data
Lab Results
12/13/23 03:36
12/13/23 03:36
Estimated Creat Clear 60 ml/min 12/13/23 03:36
Lactic Acid Cancelled 12/07/23 20:45
Total Bilirubin 1.0 mg/dl (0.2-1.3) 12/08/23 04:24
AST 36 U/L (14-36) 12/08/23 04:24
ALT 17 U/L (0-35) 12/08/23 04:24
Alkaline Phosphatase 295 U/L (38-126) H 12/08/23 04:24
Most recent labs reviewed.
Chest X-Ray: Image Reviewed and Report Reviewed
Micro Results:
12/07/23 16:45 Blood Culture - Final
Blood/Venous No Growth - Final Report
12/07/23 16:45 Blood Culture - Preliminary
Blood/Venous Coagulase neg. staphylococcus
Additional testing on request
Gram Stain - Preliminary
12/07/23 22:03 MRSA Screen - Final
Nose No Methicillin Resistant Staphylococcus aureus isolated.
Imaging:
12/09/2023 CXR (portable): Unchanged small left basilar opacities.
12/07/2023 CXR (portable): Small bilateral pleural effusions. Bibasilar opacities may represent atelectasis or mild viral pneumonia. Please see full dictation for additional detail.
Care Review
Plan reviewed with: Physician
--- NOTE | 2023-12-13 14:50 | CM ---
CM received call from admissions at [facility], updated about patient family discussion about possible return home. Patient on 6 liters O2 today per nursing. CM will continue to follow for discharge planning needs.
Plan; home with VN and DME vs SNF options
--- NOTE | 2023-12-13 15:05 | PTCARENOTE ---
Rec'd pt this AM. remains lethargic, drowsy but arousable. BP soft but Midodrine started today and given as ordered. HR well controlled. Family had 2 visitors in room. RN educated on policy with Covid patients that only 1 visitor allowed. 2nd
visitor did leave the room. Resting comfortably at this time.
[2023-12-13] MEDS: TYLENOL 650 MG PO (15:40)
--- NOTE | 2023-12-13 16:08 | PTCARENOTE ---
Pt complained of pain in left hip, crying out. RN and PCT repositioned and gave tylenol, Pt now calm and restful
[2023-12-13] MEDS: LOVENOX 40 MG SC (17:07)
--- NOTE | 2023-12-13 20:30 | PTCARENOTE ---
Resumed care of pt laying in bed sleeping. Pt arousable to voice. Pt AAOx1, forgetful to time and place. Pt able to make needs known. Pt with right sided jane paresis, and generalized weakness t/o body. Hx dementia at baseline. Med sitter in place
for pt safety. HR in the 70's in Afib on the monitor with intermittent NSR with frequent PACS. HR irreg. POX 95% on 5LO2 midflow NC. Lungs dec t/o. + bowel, round obese abd. Pt inc of loose small brown bm. Emily care provided. Decreased urine output,
bladder scanned for 422ml. St cath performed and drained 400ml dark jose, cloudy, strong smelling urine. + 3 pitting generalized anasarca noted. Weak pedal pulses present. Multi podis heel boots in place. B/L heel foams in place. Sacral foam in
place. Pale skin noted. Pt denies any pain or discomfort at this time. Pt repositioned per comfort. CAHUILLA elevated. left dual picc in place and capped. Will continue to monitor.
[2023-12-13] MEDS: DECADRON 6 MG IV (20:38)
[2023-12-13] MEDS: DESYREL 25 MG PO (22:55)
[2023-12-14] VITALS (15 sets, daily range): BP systolic 90–123; BP diastolic 63–106; PULSE 136; O2SAT 96; BMI 27.8
[2023-12-14] MEDS: SYNTHROID 50 MCG PO (04:37)
[2023-12-14 05:33] LABS: % Basophils 0.1 % (0-2); % Immature Granulocytes 2.9 % (0-0.5); % Lymphocytes 5.1 % (20.5-51.1); % Monocytes 1.9 % (1.7-9.3); Absolute Immature Granulocytes 0.4 10^3/uL (0-0.05); Absolute Lymphocytes 0.7 10^3/uL (1.2-3.4); Absolute Monocytes 0.3 10^3/uL (0.1-0.6); Absolute Neutrophils 12.2 10^3/uL (1.4-6.5); Hemoglobin 7.7 g/dL (12.0-16.0); Mean Corp Hgb Conc. 30.8 g/dL (33.0-37.0); Mean Corpuscular Hgb 28.5 pg (27.0-31.0); Mean Corpuscular Volume 92.6 fL (81.0-99.0); Nucleated Red Blood Cells % 0 %; Platelet Count 268 10^3/uL (130-400); Red Cell Dist. Width 17.8 % (11.5-14.5); White Blood Cell Count 13.6 10^3/uL (4.8-10.8)
--- NOTE | 2023-12-14 08:37 | W.PN.HOSP.TC ---
Today's Communication/Plan
-
IV Lasix
Wean oxygen
Continue PT/OT
Assessment / Plan
Assessment / Plan
Gen-awake, alert, NAD
HEENT-NC, AT, anicteric, clear oral mm
Neck-supple
CV-reg, no M, +S1/S2
Lungs-clear B/L
Abd-soft, NT, ND
Ext-no edema
Musculoskeletal-no cyanosis, clubbing
Skin-warm and dry
Neuro-grossly non-focal
Psych-calm, cooperative
Acute hypoxic respiratory failure -multifactorial from COVID-19 infection, acute CHF. Currently on 5 L nasal cannula oxygen, wean down as able. Discussed with nursing.
Acute CHF preserved EF exacerbation -BNP was greater than 27,000 on admission. Echocardiogram done 12/08 showed LVEF 60 to 65%, moderate to severe MR, moderate TR. Cardiology evaluated the patient and signed off. Cardiology recommends
conservative treatment as she is a poor candidate for aggressive cardiac measures.
Weight is 73 kg today. Given improvement in blood pressure we will resume IV Lasix today.
Non-[place] trop elevation - in setting of Acute CHF, COVID, Hypoxia. Troponin has peaked.
Viral Septic shock from COVID -still relatively hypotensive this morning. Blood pressure improving on midodrine.
COVID-19 infection -completed course of Paxlovid. Continue steroids. She is not vaccinated. I spoke with patient and son today, recommend vaccination in 3 months.
Hypokalemia -resolved.
Hypervolemic hyponatremia -resolved.
Parox A. Fib
- continue BB, now on oral amiodarone
- no OAC due to hx of ICH
Hx of intracranial hemorrhage with residual asphasia/dysphasia
- obtain records
- continue Keppra prophylaxis
- PT/OT/ST
Normocytic anemia of unspecified chronicity
- obtain records
Hypothyroidism - continue levothyroxine
Bipolar disorder
Anxiety/ADHD/Depression
- continue Trazodone/Zyprexa
- monitor for signs of agitation/psychosis from steroids
Hyperlipidemia- statin
Essential HTN- hold Triamterene/HCTZ due to hyponatremia
sacrum stage 2 PI and right and left heel unstageable wounds, POA
DNR
Dispo -plan to discharge to SNF versus home with VN when medically stable.
Updated patient's son at the bedside.
Anticipated Discharge: 24 - 48 hours
Subjective/Interval History
-
Date of Service: December 14, 2023
Patient seen and examined. No complaints.
Objective Data
-
Labs:
Laboratory Results
12/14/23
04:33
WBC 13.6 H
Hgb 7.7 L
Hct 25.0 L
Plt Count 268
Vital Signs:
Vital Signs
Temp Pulse Resp BP Pulse Ox
97.6 F 118 21 108/70 93
12/14/23 07:25 12/14/23 08:00 12/14/23 08:00 12/14/23 08:00 12/14/23 08:00
I&O
12/13/23 12/14/23 12/15/23
06:59 06:59 06:59
Intake Total 240 / 240
Output Total 650 / 650 400 / 400
Balance -650 / -650 -160 / -160
Review of Systems
-
History Source: Patient
All other systems: Reviewed and negative
[2023-12-14] MEDS: ProAmatine 10 MG PO (09:16)
[2023-12-14] MEDS: PACERONE 200 MG PO (09:17)
[2023-12-14] MEDS: KEPPRA 500 MG PO ×2 (09:17→19:47)
[2023-12-14] MEDS: ZYPREXA 2.5 MG PO ×2 (09:18→19:47)
[2023-12-14] MEDS: ARIMIDEX 1 MG PO (09:18)
[2023-12-14] MEDS: VITAMIN C 1000 MG PO ×2 (09:18→19:47)
[2023-12-14] MEDS: VITAMIN D3 (cholecalciferol) 25 MCG PO (09:18)
[2023-12-14] MEDS: DECADRON 6 MG PO (09:21)
--- NOTE | 2023-12-14 09:38 | W.PN.ID1 ---
Date of Service
Date of Service: December 14, 2023
Today's Communication
Continue supportive measures.
Assessment / Plan
COVID-19
- S/p 5-day course of Paxlovid.
Hypoxemia
Leukocytosis
Dementia
Hx CVA
HTN
Dyslipidemia
Stage IV breast cancer
Hypothyroid
Recommendations:
Continue Decadron. Monitor off antibiotics.
Continue with supplemental oxygen. Wean as possible. Currently remains on 6 L nasal cannula.
Continue with supportive measures.
Monitor white count and temperatures.
CXR in 4 to 6 weeks time.
����������������������������������������������������������
Chief Complaint
-: Other (Covid-19)
Subjective / Review of Systems
Patient seen and examined. Remains on supplemental oxygen (currently 6 L NC). Denies significant cough.
Review of Systems: No Fever and No Chills
Vital Signs / Physical Exam
Vital Signs
Vital Signs
Temp Pulse Resp BP Pulse Ox
97.6 F 97 21 108/70 93
12/14/23 07:25 12/14/23 09:16 12/14/23 08:00 12/14/23 09:16 12/14/23 08:00
Physical Exam
Constitutional: No Acute Distress, Comfortable, Chronically Ill and Non-toxic
Oropharyngeal: Negative Thrush
Cardiovascular: S1/S2; Negative S3/S4
Pulmonary: Rhonchi (Few scattered areas right side.), Coarse and Non Labored; Negative Wheezes
Gastrointestinal: Soft, Non Tender and Non Distended
Neurological: Awake and Alert
Psychological: Calm
Objective Data
Lab Data
Lab Results
12/14/23 04:33
Estimated Creat Clear 60 ml/min 12/13/23 03:36
Lactic Acid Cancelled 12/07/23 20:45
Total Bilirubin 1.0 mg/dl (0.2-1.3) 12/08/23 04:24
AST 36 U/L (14-36) 12/08/23 04:24
ALT 17 U/L (0-35) 12/08/23 04:24
Alkaline Phosphatase 295 U/L (38-126) H 12/08/23 04:24
Most recent labs reviewed.
Micro Results:
12/07/23 16:45 Blood Culture - Final
Blood/Venous Coagulase neg. staphylococcus
Additional testing on request
Gram Stain - Final
12/07/23 16:45 Blood Culture - Final
Blood/Venous No Growth - Final Report
12/07/23 22:03 MRSA Screen - Final
Nose No Methicillin Resistant Staphylococcus aureus isolated.
Imaging:
12/09/2023 CXR (portable): Unchanged small left basilar opacities.
12/07/2023 CXR (portable): Small bilateral pleural effusions. Bibasilar opacities may represent atelectasis or mild viral pneumonia. Please see full dictation for additional detail.
[2023-12-14] MEDS: LASIX 40 MG IV (10:18)
--- NOTE | 2023-12-14 11:47 | CM ---
met with patient and son cony at bedside.patient is being monitored off abx. po decadron. on 6 liters nc o2. patient with dementia.spoke with son who mentioned they want to take patient back to her home with home care services.patient will be
evaluated by therapy and hopefully discuss how care patient will require.she lives in a 2 story home but son states she can stay on first level with a hospital bed.
Plan is home with [facility] vs return to [facility].
[2023-12-14 12:33] LABS: Blood Urea Nitrogen 24 mg/dl (7-17); Calcium 8.4 mg/dl (8.4-10.2); Carbon Dioxide 34 mmol/L (22-30); Chloride 100 mmol/L (98-107); Estimated Creatinine Clearance 67 ml/min; Glucose 129 mg/dl (70-99); Potassium 3.5 mmol/L (3.5-5.1); Sodium 137 mmol/L (135-145); eGFR > 60.00
[2023-12-14] MEDS: ProAmatine PO ×2 (13:14→17:56)
[2023-12-14] MEDS: LOVENOX 40 MG SC (17:53)
[2023-12-14] MEDS: DESYREL 25 MG PO (22:59)
[2023-12-15] VITALS (12 sets, daily range): BP systolic 108–138; BP diastolic 70–103; BMI 28.1
[2023-12-15] MEDS: SYNTHROID 50 MCG PO (05:36)
[2023-12-15 05:58] LABS: % Basophils 0.1 % (0-2); % Eosinophils 0.5 % (0-6); % Immature Granulocytes 2.3 % (0-0.5); % Lymphocytes 9.2 % (20.5-51.1); % Monocytes 4.3 % (1.7-9.3); % Neutrophils 83.6 % (42.2-75.2); Absolute Eosinophils 0.1 10^3/uL (0-0.7); Absolute Immature Granulocytes 0.4 10^3/uL (0-0.05); Absolute Lymphocytes 1.4 10^3/uL (1.2-3.4); Absolute Monocytes 0.6 10^3/uL (0.1-0.6); Absolute Neutrophils 12.5 10^3/uL (1.4-6.5); Hematocrit 27.8 % (37.0-47.0); Hemoglobin 8.3 g/dL (12.0-16.0); Mean Corp Hgb Conc. 29.9 g/dL (33.0-37.0); Mean Corpuscular Hgb 27.9 pg (27.0-31.0); Mean Corpuscular Volume 93.6 fL (81.0-99.0); Nucleated Red Blood Cells % 0.1 %; Platelet Count 278 10^3/uL (130-400); Red Blood Cell Count 2.97 10^6/uL (4.20-5.40); Red Cell Dist. Width 17.9 % (11.5-14.5)
--- NOTE | 2023-12-15 06:11 | PTCARENOTE ---
PT slept well overnight. No issues to report. PT remains on 5LO2 MF NC. Pt awake this am pleasantly confused. Vital signs stable. Will continue to monitor.
[2023-12-15 06:18] LABS: Blood Urea Nitrogen 21 mg/dl (7-17); Carbon Dioxide 34 mmol/L (22-30); Chloride 104 mmol/L (98-107); Estimated Creatinine Clearance 68 ml/min; Glucose 83 mg/dl (70-99); Potassium 3.3 mmol/L (3.5-5.1); Sodium 136 mmol/L (135-145); eGFR > 60.00
--- NOTE | 2023-12-15 07:55 | W.PN.HOSP.TC ---
Addendum entered and electronically signed by Amos Romeo DO 12/15/23 12:14:
Patient with right heel unstageable ulcer with necrosis. Will consult podiatry. Check ARSEN.
Original Note:
Today's Communication/Plan
-
Check magnesium
Oral potassium
Wean oxygen as able
Assessment / Plan
Assessment / Plan
Gen-awake, alert, NAD
HEENT-NC, AT, anicteric, clear oral mm
Neck-supple
CV-reg, no M, +S1/S2
Lungs-clear B/L
Abd-soft, NT, ND
Ext-no edema
Musculoskeletal-no cyanosis, clubbing
Skin-warm and dry
Neuro-grossly non-focal
Psych-calm, cooperative
Acute hypoxic respiratory failure -multifactorial from COVID-19 infection, acute CHF. Currently on 5 L nasal cannula oxygen, wean down as able. Discussed with nursing.
Acute CHF preserved EF exacerbation -BNP was greater than 27,000 on admission. Echocardiogram done 12/08 showed LVEF 60 to 65%, moderate to severe MR, moderate TR. Cardiology evaluated the patient and signed off. Cardiology recommends
conservative treatment as she is a poor candidate for aggressive cardiac measures.
Weight is 74 kg today. Continue Lasix p.o.
Non-IA trop elevation - in setting of Acute CHF, COVID, Hypoxia. Troponin has peaked.
Viral Septic shock from COVID -still relatively hypotensive this morning. Blood pressure improving, getting as needed midodrine.
COVID-19 infection -completed course of Paxlovid. Continue steroids, day 9 of 10. She is not vaccinated. I spoke with patient and son today, recommend vaccination in 3 months.
Hypokalemia -3.3 today. Check magnesium, will replete.
Hypervolemic hyponatremia -resolved.
Parox A. Fib
- continue BB, now on oral amiodarone
- no OAC due to hx of ICH
Hx of intracranial hemorrhage with residual asphasia/dysphasia
- obtain records
- continue Keppra prophylaxis
- PT/OT/ST
Normocytic anemia of unspecified chronicity
- obtain records
Hypothyroidism - continue levothyroxine
Bipolar disorder
Anxiety/ADHD/Depression
- continue Trazodone/Zyprexa
- monitor for signs of agitation/psychosis from steroids
Hyperlipidemia- statin
Essential HTN- hold Triamterene/HCTZ due to hyponatremia
sacrum stage 2 PI and right and left heel unstageable wounds, POA
DNR
Dispo -plan to discharge to SNF versus home with VN when medically stable.
Anticipated Discharge: 24 - 48 hours
Subjective/Interval History
-
Date of Service: December 15, 2023
Patient seen and examined. No complaints.
Objective Data
-
Labs:
Laboratory Results
12/15/23
05:35
WBC 15.0 H
Hgb 8.3 L
Hct 27.8 L
Plt Count 278
Sodium 136
Potassium 3.3 L
Chloride 104
Carbon Dioxide 34 H
BUN 21 H
Creatinine 0.5 L
Glucose 83
Calcium 8.0 L
Vital Signs:
Vital Signs
Temp Pulse Resp BP Pulse Ox
97.9 F 114 17 120/83 92
12/15/23 04:12 12/15/23 06:00 12/15/23 06:00 12/15/23 06:00 12/15/23 06:00
I&O
12/14/23 12/15/23 12/16/23
06:59 06:59 06:59
Intake Total 240 / 240 120 / 120
Output Total 400 / 400
Balance -160 / -160 120 / 120
Review of Systems
-
History Source: Patient
All other systems: Reviewed and negative
[2023-12-15] MEDS: KCL 40 MEQ PO (09:34)
[2023-12-15] MEDS: PACERONE 200 MG PO (09:35)
[2023-12-15] MEDS: LASIX 20 MG PO (09:36)
[2023-12-15] MEDS: KEPPRA 500 MG PO ×2 (09:36→20:23)
[2023-12-15] MEDS: VITAMIN D3 (cholecalciferol) 25 MCG PO (09:36)
[2023-12-15] MEDS: VITAMIN C 1000 MG PO ×2 (09:36→20:23)
[2023-12-15] MEDS: ProAmatine 10 MG PO ×3 (09:36→17:47)
[2023-12-15] MEDS: ARIMIDEX 1 MG PO (09:36)
[2023-12-15] MEDS: ZYPREXA 2.5 MG PO ×2 (09:37→20:23)
[2023-12-15] MEDS: DECADRON 6 MG PO (09:37)
--- NOTE | 2023-12-15 10:55 | PTCARENOTE ---
Assumed care of patient this morning. She is pleasant but confused. Son at the bedside early this morning approx 0800. Patient lifted with overhead lift into chair for breakfast. Pt's meds crushed in applesauce. Weaned O2 to 4L NC. Assessment, care
and VS as charted.
--- NOTE | 2023-12-15 12:05 | WOUNDNOTE ---
[facility] RN NOTE: Patient visited to follow up on unstageable heel wounds. Left heel wound stable. Right unstageable wound now with loose eschar at proximal and distal ends of wound, increased erythema, serosanguineous drainage and odor. Patient
reporting pain/tenderness with wound care. Will defer to hospitalist for surgical consult. Confirmed updating wound care to include cleaning wound with Dakins with hospitalist. Heels off-loaded in boots. Per chart review intake has been fair/poor.
Patient has several comorbidities that impact healing including stage IV breast cancer, poor intake, immobility, hypoxia and use of steroids. Wounds may worsen and new wounds may develop even with optimal care. MANI Torres given update. Will follow as
needed.
--- NOTE | 2023-12-15 14:45 | PTCARENOTE ---
Patient sent to XR with PCT on 4L O2.
--- NOTE | 2023-12-15 16:13 | W.PN.UPDATE ---
Update Note
Progress Note Update
pt seen at bedside with daughter
no pain
pt has chronic heel decub right heel
heel decub right---rec conservative tx, no osteo on xrays, rec dakins dressing changed bid
explained if debrided, it can open wound close to bone and create osteo and need for more invasive sx
they agree with tx. I d/w wound care as well and they ordered dakins
explained it can become infected and may need sx in future, but for now best to stay conservative
full consult dictated
[2023-12-15] MEDS: LOVENOX 40 MG SC (17:48)
[2023-12-15] MEDS: KCL 20 MEQ PO (20:23)
[2023-12-15] MEDS: DESYREL 25 MG PO (21:00)
[2023-12-16] VITALS (15 sets, daily range): BP systolic 118–159; BP diastolic 75–105; BMI 28.1
--- NOTE | 2023-12-16 02:09 | PTCARENOTE ---
Assumed care of Pt from Day RN. Pt appeared to be resting comfortably in bed, Daughter at bed side. Pt had no complaints of pain at that time. HR in 110-120's known afib. Pt has no complaints at this time. Video monitoring in place, call dalton
within reach. Assessment care and vitals as charted.
[2023-12-16] MEDS: SYNTHROID 50 MCG PO (05:00)
[2023-12-16] MEDS: DAKIN'S SOLUTION 0.125% 1/4 STRENGTH 1 ML TOPICAL (05:00)
[2023-12-16 05:47] LABS: % Basophils 0.1 % (0-2); % Eosinophils 0.9 % (0-6); % Immature Granulocytes 2.3 % (0-0.5); % Lymphocytes 7.7 % (20.5-51.1); Absolute Eosinophils 0.1 10^3/uL (0-0.7); Absolute Immature Granulocytes 0.3 10^3/uL (0-0.05); Absolute Monocytes 0.5 10^3/uL (0.1-0.6); Absolute Neutrophils 10.5 10^3/uL (1.4-6.5); Hematocrit 26.6 % (37.0-47.0); Hemoglobin 7.9 g/dL (12.0-16.0); Mean Corp Hgb Conc. 29.7 g/dL (33.0-37.0); Mean Corpuscular Hgb 27.4 pg (27.0-31.0); Mean Corpuscular Volume 92.4 fL (81.0-99.0); Mean Platelet Volume 8.8 fL (7.4-10.4); Nucleated Red Blood Cells % 0 %; Platelet Count 280 10^3/uL (130-400); Red Blood Cell Count 2.88 10^6/uL (4.20-5.40); Red Cell Dist. Width 18.3 % (11.5-14.5); White Blood Cell Count 12.4 10^3/uL (4.8-10.8)
[2023-12-16 06:11] LABS: Blood Urea Nitrogen 23 mg/dl (7-17); Carbon Dioxide 34 mmol/L (22-30); Chloride 103 mmol/L (98-107); Estimated Creatinine Clearance 68 ml/min; Glucose 78 mg/dl (70-99); Potassium 3.8 mmol/L (3.5-5.1); Sodium 140 mmol/L (135-145); eGFR > 60.00
--- NOTE | 2023-12-16 07:44 | W.PN.HOSP.TC ---
Addendum entered and electronically signed by Amos Romeo DO 12/16/23 16:21:
Acute TME -Multifactorial etiology, including infection, dementia, psychiatric condition, medications, metabolic derangements, etc.
Addendum entered and electronically signed by Amos Romeo DO 12/16/23 11:26:
I spoke with Dr. Means, Danna can come off COVID isolation today.
Original Note:
Today's Communication/Plan
-
Wean oxygen as able
Discharge planning
Assessment / Plan
Assessment / Plan
Gen-awake, alert, NAD
HEENT-NC, AT, anicteric, clear oral mm
Neck-supple
CV-reg, no M, +S1/S2
Lungs-clear B/L
Abd-soft, NT, ND
Ext-no edema
Musculoskeletal-no cyanosis, clubbing
Skin-warm and dry
Neuro-grossly non-focal
Psych-calm, cooperative
Acute hypoxic respiratory failure -multifactorial from COVID-19 infection, acute CHF. Currently on 4 L nasal cannula oxygen, wean down as able. Discussed with nursing. Anticipate discharge on home oxygen.
Acute CHF preserved EF exacerbation -BNP was greater than 27,000 on admission. Echocardiogram done 12/08 showed LVEF 60 to 65%, moderate to severe MR, moderate TR. Cardiology evaluated the patient and signed off. Cardiology recommends
conservative treatment as she is a poor candidate for aggressive cardiac measures.
Weight is 74 kg today. Continue Lasix p.o.
Non-HI trop elevation - in setting of Acute CHF, COVID, Hypoxia. Troponin has peaked.
Viral Septic shock from COVID -still relatively hypotensive this morning. Blood pressure improving, getting as needed midodrine.
COVID-19 infection -completed course of Paxlovid. Continue steroids, day 10 of 10. She is not vaccinated. I spoke with patient and son today, recommend vaccination in 3 months.
Hypokalemia - resolved.
Hypervolemic hyponatremia -resolved.
Parox A. Fib
- continue BB, now on oral amiodarone
- no OAC due to hx of ICH
Hx of intracranial hemorrhage with residual asphasia/dysphasia
- obtain records
- continue Keppra prophylaxis
- PT/OT/ST
Chronic normocytic anemia -hemoglobin relatively stable. Outpatient follow-up.
Hypothyroidism - continue levothyroxine. TSH 2.47.
Bipolar disorder
Anxiety/ADHD/Depression
- continue Trazodone/Zyprexa
- monitor for signs of agitation/psychosis from steroids
Hyperlipidemia- statin
Essential HTN- hold Triamterene/HCTZ due to hyponatremia
sacrum stage 2 PI and right and left heel unstageable wounds, POA
Right heel unstageable ulcer with necrosis -appreciate podiatry input. Recommend local wound care. Does not recommend surgery as it will worsen the wound, increase risk of infection. Offloading of the heels recommended. Discussed with patient's
son.
DNR
Dispo -plan to discharge home with VN as per family wishes. I updated patient's son Rene on the phone. Son believes he may need 1 more day to make arrangements to take her home, possible discharge tomorrow.
Patient is in need of oxygen at 4 liters/minute via nasal cannula continuously due to pulse oximetry of 88% on room air at rest. Oxygen will help to improve hypoxemia. Patient is mobile within the home. DuoNeb therapy has been tried and is
ineffective in treating hypoxemia related symptoms. Oxygen is needed to improve symptoms.
Anticipated Discharge: Within 24 hours
Subjective/Interval History
-
Date of Service: December 16, 2023
Patient seen and examined. No complaints. Looks comfortable.
Objective Data
-
Labs:
Laboratory Results
12/16/23
04:36
WBC 12.4 H
Hgb 7.9 L
Hct 26.6 L
Plt Count 280
Sodium 140
Potassium 3.8
Chloride 103
Carbon Dioxide 34 H
BUN 23 H
Creatinine 0.5 L
Glucose 78
Calcium 8.0 L
Vital Signs:
Vital Signs
Temp Pulse Resp BP Pulse Ox
97.9 F 109 17 133/79 97
12/16/23 04:05 12/16/23 06:00 12/16/23 06:00 12/16/23 06:00 12/16/23 04:04
I&O
12/15/23 12/16/23 12/17/23
06:59 06:59 06:59
Intake Total 120 / 120 700 / 700
Balance 120 / 120 700 / 700
Review of Systems
-
Unable to obtain full review of systems at this time due to: Dementia
[2023-12-16] MEDS: ARIMIDEX 1 MG PO (08:34)
[2023-12-16] MEDS: LASIX 20 MG PO (08:36)
[2023-12-16] MEDS: DECADRON 6 MG PO (08:36)
[2023-12-16] MEDS: KEPPRA 500 MG PO ×2 (08:36→21:01)
[2023-12-16] MEDS: KCL 20 MEQ PO ×2 (08:36→21:01)
[2023-12-16] MEDS: PACERONE 200 MG PO (08:37)
[2023-12-16] MEDS: ProAmatine 10 MG PO ×3 (08:37→18:10)
[2023-12-16] MEDS: VITAMIN C 1000 MG PO ×2 (08:37→21:01)
[2023-12-16] MEDS: ZYPREXA 2.5 MG PO ×2 (08:39→21:02)
[2023-12-16] MEDS: VITAMIN D3 (cholecalciferol) 25 MCG PO (08:39)
--- NOTE | 2023-12-16 09:26 | W.PN.ID1 ---
Date of Service
Date of Service: December 16, 2023
Today's Communication
Continue off antibiotics
Assessment / Plan
COVID-19
- S/p 5-day course of Paxlovid.
Hypoxemia
Leukocytosis
Dementia
Hx CVA
HTN
Dyslipidemia
Stage IV breast cancer
Hypothyroid
Recommendations:
Continue Decadron. Monitor off antibiotics.
Continue with supplemental oxygen. Wean as possible. Currently weaned to 3L via nasal cannula.
Continue with supportive measures.
Monitor white count and temperatures.
CXR in 4 to 6 weeks time.
����������������������������������������������������������
Chief Complaint
-: Other (Covid-19)
Subjective / Review of Systems
Patient seen and examined. Reports no significant issues. Breathing is comfortable, although she remains on supplemental O2.
Review of Systems: No Fever, No Chills and No Cough
Vital Signs / Physical Exam
Vital Signs
Vital Signs
Temp Pulse Resp BP Pulse Ox
97.3 F 121 17 122/85 97
12/16/23 07:18 12/16/23 08:37 12/16/23 06:00 12/16/23 08:37 12/16/23 04:04
Physical Exam
Constitutional: No Acute Distress, Comfortable, Chronically Ill and Non-toxic
Eyes: Sclera Anicteric
Cardiovascular: Irregular Rate and S1/S2; Negative S3/S4
Pulmonary: Coarse and Non Labored; Negative Wheezes
Gastrointestinal: Soft and Non Tender
Neurological: Awake and Alert
Psychological: Calm
Objective Data
Lab Data
Lab Results
12/16/23 04:36
12/16/23 04:36
Estimated Creat Clear 68 ml/min 12/16/23 04:36
Lactic Acid Cancelled 12/07/23 20:45
Total Bilirubin 1.0 mg/dl (0.2-1.3) 12/08/23 04:24
AST 36 U/L (14-36) 12/08/23 04:24
ALT 17 U/L (0-35) 12/08/23 04:24
Alkaline Phosphatase 295 U/L (38-126) H 12/08/23 04:24
Most recent labs reviewed.
Micro Results:
12/07/23 16:45 Blood Culture - Final
Blood/Venous Coagulase neg. staphylococcus
Additional testing on request
Gram Stain - Final
12/07/23 16:45 Blood Culture - Final
Blood/Venous No Growth - Final Report
12/07/23 22:03 MRSA Screen - Final
Nose No Methicillin Resistant Staphylococcus aureus isolated.
Imaging:
12/09/2023 CXR (portable): Unchanged small left basilar opacities.
12/07/2023 CXR (portable): Small bilateral pleural effusions. Bibasilar opacities may represent atelectasis or mild viral pneumonia. Please see full dictation for additional detail.
--- NOTE | 2023-12-16 09:34 | CM ---
Addendum entered by Lillie Rodríguez RN 12/16/23 10:12:
Additionally, Jody and Rene have not contacted the patient's terminal system operator care insurance or any caregiver agencies.
Case discussed with [facility] Liaison.
Phone call to Soumya Hagan [facility]; left message requesting review/response to referral.
Phone call to Ezra Carvalho Cam[facility]; left message requesting review/response to referral.
Spoke with Ezra Roy [facility] SN[facility]; they are closed to external admissions at this time.
Spoke with Ezra Lee; she will review the referral and may have a bed in the next few days.
Plan follow up SNF referrals.
Original Note:
Patient from [facility] SNF with Hx including dementia, bipolar disorder and stroke with Dx COVID-19, HF, sacral and heel wounds. O2 3L. Receiving IV Decadron. Video monitoring in place. PT & OT 2 recommend skilled rehab.
Spoke with patient's son ISAMAR López; discussed patient's current status and need for 2 person assist at home. Reviewed 3 SNF referrals with daughter- no accepting facilities. He will agree to SNF if his sister agrees as well, and Jody is taking
the lead on the d/c planning.
Spoke with patient's daughter ISAMAR Vera; discussed patient's current status and need for 2 person assist at home. Jody shared that patient did not receive acute rehab after her stroke in Nov, and initially at [facility] she was able to work on
bicycle in the gym with PT. Her mobility declined while at SNF and related to having Covid - she missed several days rehab due to that. Reviewed 3 SNF referrals with daughter- no accepting facilities. Daughter is amenable to acute rehab or SNF.
Reviewed additional SNF referrals and provided [facility] ratings- daughter agrees to additional referrals.
Plan follow up SNF referrals.
--- NOTE | 2023-12-16 09:43 | VNURNOTE ---
Message left for son Rene 12/15 afternoon to discuss [facility].
Home Health Liaison spoke with patient's son Rene by phone at 0815 and at great length discussed [facility] nurse/therapy, visits, and limitations.
Rene understands that visits at home will be 2-3 x per week to assess and teach medical management. Private caregivers discussed and encouraged as patient is a high level of care for home and remains a 2 assist for transfers.
Rene discussed the possibility of agreeing to SNF prior to home as long as it was a 'nice place'.
Rene stated that he feels overwhelmed at this time and is unsure of the plan.
DME including hospital bed, gee lift, wheelchair and home O2 were discussed and the ordering process explained to Rene.
CM updated with above, will continue to monitor for [facility] needs.
--- NOTE | 2023-12-16 10:40 | WOUNDNOTE ---
[facility] RN NOTE: Received TT from Dr. Jay and reviewed note. Plan is for BID dressing changes with Dakins. Order, discharge and careplan updated.
--- NOTE | 2023-12-16 13:49 | RESPNOTE ---
Home O2 assessment:
patient has been having difficulty ambulating since at least September per pt/family/ PT notes, and requires assist x3.
patient removed from O2.
lowest SpO2 84%, high 91% but cannot sustain.
re-applied O2 at 2L, SpO2 recovered to 96% within 1 minute.
--- NOTE | 2023-12-16 13:58 | PTCARENOTE ---
Addendum entered by Yuni Lewis RN 12/16/23 15:02:
Heart rate is now in the 80s after atenolol dose.
Original Note:
Patient out of bed to chair. Heart rate in the 130s, blood pressure 138/91. Dr. Romeo notified. Atenolol orders. Patient with family at bedside. Infection control approved out of isolation today. Patient weaned to 2 liters via nasal cannula, pulse
ox 97%. Dropped into the 80s on room air while in chair. Patient compliant with plan of care. Denying pain when asked.
[2023-12-16] MEDS: TENORMIN 50 MG PO (14:11)
--- NOTE | 2023-12-16 15:10 | PN.CDI ---
CDI
- -
CDI:
Physician Documentation Request
Admit Date: 12/07/23 18:42
Dear Doctor Ousmane,
Please review the following and provide your response in the progress notes.
Clinical Indicators:
12/08/23 11:54 - Patient Care Note
#...pt awake and alert, confusion noted and pt seems a bit manic,
#...sentences hard to follow at times, pt does have hx of Bipolar Disorder.
#Son at bedside, per son, pt is a bit more confused than normal.
12/09/23 01:37 - Patient Care Note
#Pt found screaming 'help me' in bed. Pt stated she needed to 'cut this' as she was holding the BP wire.
#Re-oriented to place, time and situation.
#Med sitter at bedside. Call dalton within reach.
12/10/23 06:34 - Patient Care Note
#Pt continues to be confused, hx dementia.
#Re-oriented as needed.#Med sitter in room; pt had pulled out an iv the previous night.
12/10/23 18:45 (created 12/10/23 21:01) - Patient Care Note
#Patient confused. Med-sitter in room.
PN, 2
#Hx of intracranial hemorrhage with residual asphasia/dysphasia
#Bipolar disorder
#Anxiety/ADHD/Depression
#...- monitor for signs of agitation/psychosis from steroids
12/13/23 20:30 (created 12/13/23 23:42) - Patient Care Note
#Pt with right sided jane paresis, and generalized weakness t/o body.
#Hx dementia at baseline.
#Med sitter in place for pt safety.
PN, 2
#Acute hypoxic respiratory failure -multifactorial from COVID-19 infection, acute CHF. #Currently on 4 L nasal cannula oxygen, wean down as able.
#Viral Septic shock from COVID -still relatively hypotensive this morning.
#Blood pressure improving, getting as needed midodrine.
Based on the above and your clinical assessment, please clarify in the which, if any of the following, is the most likely etiology of the confusion/altered mental status.
Multifactorial, toxic metabolic encephalopathy, infection, dementia, psychiatric condition, medications, metabolic derangements, etc.
Dementia with behavioral disturbances
Dementia with acute delirium
Other
Use of terms such as suspected, likely, concern for, or probable (associated with a specific diagnosis that is being evaluated, monitored, or treated as if it exists) are acceptable and can be coded in the inpatient setting, when documented at the
time of discharge.
Thank you,
Maia Power RN BSN CCDS
CDI Specialist
please contact via tiger text
Please use your independent medical judgment in providing your response.
[2023-12-16] MEDS: TYLENOL 650 MG PO (15:35)
[2023-12-16] MEDS: LOVENOX 40 MG SC (18:12)
[2023-12-16] MEDS: DESYREL 25 MG PO (21:01)
[2023-12-17] VITALS (12 sets, daily range): BP systolic 111–145; BP diastolic 65–108; BMI 27.4
[2023-12-17 05:37] LABS: % Basophils 0.2 % (0-2); % Immature Granulocytes 1.9 % (0-0.5); % Lymphocytes 11.4 % (20.5-51.1); % Monocytes 6.2 % (1.7-9.3); % Neutrophils 79.3 % (42.2-75.2); Absolute Eosinophils 0.1 10^3/uL (0-0.7); Absolute Immature Granulocytes 0.2 10^3/uL (0-0.05); Absolute Lymphocytes 1.1 10^3/uL (1.2-3.4); Absolute Monocytes 0.6 10^3/uL (0.1-0.6); Absolute Neutrophils 7.6 10^3/uL (1.4-6.5); Hematocrit 25.8 % (37.0-47.0); Mean Corpuscular Hgb 28.2 pg (27.0-31.0); Mean Corpuscular Volume 90.8 fL (81.0-99.0); Nucleated Red Blood Cells % 0 %; Red Blood Cell Count 2.84 10^6/uL (4.20-5.40); Red Cell Dist. Width 18.2 % (11.5-14.5); White Blood Cell Count 9.6 10^3/uL (4.8-10.8)
[2023-12-17 05:54] LABS: Blood Urea Nitrogen 22 mg/dl (7-17); Carbon Dioxide 31 mmol/L (22-30); Chloride 108 mmol/L (98-107); Estimated Creatinine Clearance 67 ml/min; Glucose 72 mg/dl (70-99); Potassium 4.4 mmol/L (3.5-5.1); Sodium 138 mmol/L (135-145); eGFR > 60.00
[2023-12-17] MEDS: SYNTHROID 50 MCG PO (06:02)
[2023-12-17 06:39] LABS: Platelet Count 154 10^3/uL (130-400)
[2023-12-17 06:43] LABS: Acanthocytes 1+; Anisocytosis 1+; Mean Platelet Volume 11.3 fL (7.4-10.4); Normal RBC Morphology No; Ovalocytes 1+; Target Cells Occasional; Tear Drop Red Blood Cells 1+
[2023-12-17] MEDS: KCL 20 MEQ PO ×2 (09:20→20:32)
[2023-12-17] MEDS: VITAMIN C 1000 MG PO ×2 (09:20→20:32)
[2023-12-17] MEDS: DECADRON 6 MG PO (09:20)
[2023-12-17] MEDS: PACERONE 200 MG PO (09:22)
[2023-12-17] MEDS: ZYPREXA 2.5 MG PO ×2 (09:22→20:33)
[2023-12-17] MEDS: ARIMIDEX 1 MG PO (09:22)
[2023-12-17] MEDS: KEPPRA 500 MG PO ×2 (09:22→20:32)
[2023-12-17] MEDS: VITAMIN D3 (cholecalciferol) 25 MCG PO (09:23)
[2023-12-17] MEDS: DAKIN'S SOLUTION 0.125% 1/4 STRENGTH 473 ML TOPICAL (09:23)
[2023-12-17] MEDS: ProAmatine 10 MG PO (09:23)
[2023-12-17] MEDS: LASIX 20 MG PO (09:23)
[2023-12-17] MEDS: TENORMIN 50 MG PO (09:23)
--- NOTE | 2023-12-17 12:22 | W.PN.HOSP.TC ---
Today's Communication/Plan
-
Discharge planning
Assessment / Plan
Assessment / Plan
Gen-awake, alert, NAD
HEENT-NC, AT, anicteric, clear oral mm
Neck-supple
CV-reg, no M, +S1/S2
Lungs-clear B/L
Abd-soft, NT, ND
Ext-no edema
Musculoskeletal-no cyanosis, clubbing
Skin-warm and dry
Neuro-grossly non-focal
Psych-calm, cooperative
Acute TME -Multifactorial etiology, including respiratory failure, COVID infection, etc. Suspect her mental status is back to baseline now.
Acute hypoxic respiratory failure -multifactorial from COVID-19 infection, acute CHF. Oxygenation improving, down to 2 L.
Acute CHF preserved EF exacerbation -BNP was greater than 27,000 on admission. Echocardiogram done 12/08 showed LVEF 60 to 65%, moderate to severe MR, moderate TR. Cardiology evaluated the patient and signed off. Cardiology recommends
conservative treatment as she is a poor candidate for aggressive cardiac measures.
Weight is 72 kg today, coming down. Continue Lasix p.o.
Non-MS trop elevation - in setting of Acute CHF, COVID, Hypoxia. Troponin has peaked.
Viral Septic shock from COVID -shock resolved. Midodrine changed to as needed only.
COVID-19 infection -completed course of Paxlovid. Completed 10 days of steroids. Off isolation now. She is not vaccinated. I spoke with patient and son today, recommend vaccination in 3 months.
Hypokalemia - resolved.
Hypervolemic hyponatremia -resolved.
Parox A. Fib - continue BB, now on oral amiodarone, no OAC due to hx of .ICH
Hx of intracranial hemorrhage with residual asphasia/dysphasia
- continue Keppra prophylaxis
- PT/OT/ST
Chronic normocytic anemia -hemoglobin relatively stable. Outpatient follow-up.
Hypothyroidism - continue levothyroxine. TSH 2.47.
Bipolar disorder
Anxiety/ADHD/Depression
- continue Trazodone/Zyprexa
Hyperlipidemia -on Lipitor.
Essential HTN - hold Triamterene/HCTZ due to hyponatremia. Blood pressure relatively stable.
sacrum stage 2 PI and right and left heel unstageable wounds, POA
Right heel unstageable ulcer with necrosis -appreciate podiatry input. Recommend local wound care. Does not recommend surgery as it will worsen the wound, increase risk of infection. Offloading of the heels recommended. Discussed with patient's
son.
Ambulatory dysfunction -family reports she has not walked since September. She is an assist of 2. Requires Savana lift to wheelchair. Continue PT/OT.
DNR
Dispo -medically stable for discharge to SNF when bed available. Updated daughter at the bedside.
Anticipated Discharge: 24 - 48 hours
Subjective/Interval History
-
Date of Service: December 17, 2023
Patient seen and examined. No complaints. Denies shortness of breath.
Objective Data
-
Labs:
Laboratory Results
12/17/23
04:34
WBC 9.6
Hgb 8.0 L
Hct 25.8 L
Plt Count 154 D
Sodium 138
Potassium 4.4
Chloride 108 H
Carbon Dioxide 31 H
BUN 22 H
Creatinine 0.4 L
Glucose 72
Calcium 8.0 L
Vital Signs:
Vital Signs
Temp Pulse Resp BP Pulse Ox
97.7 F 97 17 129/79 95
12/17/23 07:21 12/17/23 09:22 12/17/23 06:00 12/17/23 09:22 12/17/23 02:00
I&O
12/16/23 12/17/23 12/18/23
06:59 06:59 06:59
Intake Total 700 / 700 720 / 720
Balance 700 / 700 720 / 720
Review of Systems
-
History Source: Patient
All other systems: Reviewed and negative
--- NOTE | 2023-12-17 13:06 | PTCARENOTE ---
Pt received from nightsazft RN. Ox2-3, forgetful, R sided hemiparesis. AF in the 120's on tele. +2 generalized edema. Currently on 2L NC with sat of 95%. ADB soft, round, obese. Poor appetite. Incontinent of urine in attends. Cleaned and redressed
sacral wound. Myself and PCT used gee lift to move pt out to the chair for breakfast, pt able to offer minimal assistance with turns. After getting pt out to the chair, BL heel wounds were cleaned and redressed. Pt's DTR at bedside. Pt offering no
complaints at this time.
[2023-12-17] MEDS: LOVENOX 40 MG SC (18:41)
[2023-12-17] MEDS: LIPITOR PO ×2 (22:03→22:06)
[2023-12-17] MEDS: DESYREL PO (22:06)
[2023-12-18] VITALS (7 sets, daily range): BP systolic 103–131; BP diastolic 65–99; BMI 27.0; BMI 27.2
[2023-12-18] MEDS: LASIX 20 MG PO (08:16)
[2023-12-18] MEDS: VITAMIN C 1000 MG PO ×2 (08:16→20:25)
[2023-12-18] MEDS: ZYPREXA 2.5 MG PO ×2 (08:16→20:25)
[2023-12-18] MEDS: SYNTHROID 50 MCG PO (08:16)
[2023-12-18] MEDS: KEPPRA 500 MG PO ×2 (08:16→20:24)
[2023-12-18] MEDS: VITAMIN D3 (cholecalciferol) 25 MCG PO (08:17)
[2023-12-18] MEDS: TENORMIN 50 MG PO (08:17)
[2023-12-18] MEDS: DECADRON 6 MG PO (08:17)
[2023-12-18] MEDS: ARIMIDEX 1 MG PO (08:17)
[2023-12-18] MEDS: DAKIN'S SOLUTION 0.125% 1/4 STRENGTH 473 ML TOPICAL (08:18)
[2023-12-18] MEDS: KCL 20 MEQ PO ×2 (08:18→20:23)
[2023-12-18] MEDS: PACERONE 200 MG PO (08:22)
--- NOTE | 2023-12-18 08:55 | W.PN.HOSP.TC ---
Today's Communication/Plan
-
Transfer to [facility]
Discharge planning
Assessment / Plan
Assessment / Plan
Gen-awake, alert, NAD
HEENT-NC, AT, anicteric, clear oral mm
Neck-supple
CV-reg, no M, +S1/S2
Lungs-clear B/L
Abd-soft, NT, ND
Ext-no edema
Musculoskeletal-no cyanosis, clubbing
Skin-warm and dry
Neuro-grossly non-focal
Psych-calm, cooperative
Acute TME -Multifactorial etiology, including respiratory failure, COVID infection, etc. Suspect her mental status is back to baseline now.
Acute hypoxic respiratory failure -multifactorial from COVID-19 infection, acute CHF. Oxygenation improving, down to 2 L.
Acute CHF preserved EF exacerbation -BNP was greater than 27,000 on admission. Echocardiogram done 12/08 showed LVEF 60 to 65%, moderate to severe MR, moderate TR. Cardiology evaluated the patient and signed off. Cardiology recommends
conservative treatment as she is a poor candidate for aggressive cardiac measures.
Weight is 72 kg today, coming down. Continue Lasix p.o.
Non-[place] trop elevation - in setting of Acute CHF, COVID, Hypoxia. Troponin has peaked.
Viral Septic shock from COVID -shock resolved. Midodrine changed to as needed only.
COVID-19 infection -completed course of Paxlovid. Completed 10 days of steroids. Off isolation now. She is not vaccinated. I spoke with patient and son today, recommend vaccination in 3 months.
Hypokalemia - resolved.
Hypervolemic hyponatremia -resolved.
Parox A. Fib - continue BB, now on oral amiodarone, no OAC due to hx of .ICH
Hx of intracranial hemorrhage with residual asphasia/dysphasia
- continue Keppra prophylaxis
- PT/OT/ST
Chronic normocytic anemia -hemoglobin relatively stable. Outpatient follow-up.
Hypothyroidism - continue levothyroxine. TSH 2.47.
Bipolar disorder
Anxiety/ADHD/Depression
- continue Trazodone/Zyprexa
Hyperlipidemia -on Lipitor.
Essential HTN - hold Triamterene/HCTZ due to hyponatremia. Blood pressure relatively stable.
sacrum stage 2 PI and right and left heel unstageable wounds, POA
Right heel unstageable ulcer with necrosis -appreciate podiatry input. Recommend local wound care. Does not recommend surgery as it will worsen the wound, increase risk of infection. Offloading of the heels recommended. Discussed with patient's
son.
Ambulatory dysfunction -family reports she has not walked since September. She is an assist of 2. Requires Savana lift to wheelchair. Continue PT/OT.
DNR
Dispo -medically stable for discharge to SNF when bed available. Updated daughter at the bedside.
Anticipated Discharge: Within 24 hours
Subjective/Interval History
-
Date of Service: December 18, 2023
Patient seen and examined. No complaints. Daughter at the bedside.
Objective Data
-
Vital Signs:
Vital Signs
Temp Pulse Resp BP Pulse Ox
98.1 F 100 17 100/74 96
12/18/23 03:27 12/18/23 08:16 12/18/23 06:27 12/18/23 08:16 12/18/23 06:27
I&O
12/17/23 12/18/23 12/19/23
06:59 06:59 06:59
Intake Total 720 / 720
Balance 720 / 720
Review of Systems
-
History Source: Patient
All other systems: Reviewed and negative
[2023-12-18] MEDS: LOVENOX 40 MG SC (17:40)
[2023-12-18] MEDS: DESENEX/MITRAZOL/ZEASORB 1 APPLIC TOPICAL (20:23)
[2023-12-18] MEDS: DESYREL PO (21:56)
[2023-12-18] MEDS: LIPITOR 10 MG PO (21:56)
[2023-12-19 05:12] VITALS: BMI 27.2
[2023-12-19] MEDS: SYNTHROID 50 MCG PO (05:53)
[2023-12-19 07:36] LABS: Blood Urea Nitrogen 21 mg/dl (7-17); Calcium 8.1 mg/dl (8.4-10.2); Carbon Dioxide 34 mmol/L (22-30); Chloride 103 mmol/L (98-107); Estimated Creatinine Clearance 67 ml/min; Glucose 73 mg/dl (70-99); Potassium 3.9 mmol/L (3.5-5.1); Sodium 138 mmol/L (135-145); eGFR > 60.00
[2023-12-19 07:40] VITALS: BP 106/66
--- NOTE | 2023-12-19 10:03 | CM ---
Addendum entered by Jennifer Arias 12/19/23 16:10:
Referrals also sent to [facility], [facility], and the [facility] [place].
Addendum entered by Jennifer Arias 12/19/23 15:19:
manager wholesale spoke with family and they did agreed to skilled facilities, and referrals sent to [facility], [facility], [facility], [facility], [facility], [facility], [facility], [facility] and [facility] they have
all denied patient due to patient care needs. Per admissions at [facility] they do not have a contract with patient's insurance. Additional referrals sent to [facility].
Original Note:
manager wholesale reviewed patient's chart and met with patient's son, Rene this am at bedside, per Rene he would like to take patient home with private caregivers. manager wholesale discussed options for private caregivers and provided a list of options
and patient's son has decided on contacting [facility] and [facility]. manager wholesale provided telephone numbers to both agencies for patient's son to contact. Patient's son is not agreeable to skilled placement at this time.
Plan; Home with VN, with visiting nurses, PT/OT, aide, hospital bed, air mattress, Savana Lift, and w/c. Patient's son, Rene to hire private duty caregivers.
[2023-12-19] MEDS: KEPPRA 500 MG PO ×2 (10:09→20:16)
[2023-12-19] MEDS: ARIMIDEX 1 MG PO (10:09)
[2023-12-19] MEDS: KCL 20 MEQ PO ×2 (10:09→20:16)
[2023-12-19] MEDS: TENORMIN 50 MG PO (10:09)
[2023-12-19] MEDS: LASIX 20 MG PO (10:09)
[2023-12-19] MEDS: VITAMIN D3 (cholecalciferol) 25 MCG PO (10:10)
[2023-12-19] MEDS: PACERONE 200 MG PO (10:10)
[2023-12-19] MEDS: ZYPREXA 2.5 MG PO ×2 (10:10→20:16)
[2023-12-19] MEDS: VITAMIN C 1000 MG PO ×2 (10:10→20:16)
[2023-12-19] MEDS: DAKIN'S SOLUTION 0.125% 1/4 STRENGTH 473 ML TOPICAL (10:11)
[2023-12-19] MEDS: DESENEX/MITRAZOL/ZEASORB 1 APPLIC TOPICAL ×2 (10:21→20:16)
--- NOTE | 2023-12-19 13:58 | W.PN.ID1 ---
Date of Service
Date of Service: December 19, 2023
Today's Communication
Sign off.
Assessment / Plan
COVID-19
- S/p 5-day course of Paxlovid.
Hypoxemia
Leukocytosis
Dementia
Hx CVA
HTN
Dyslipidemia
Stage IV breast cancer
Hypothyroid
Recommendations:
Continue Decadron. Monitor off antibiotics.
Continue with supplemental oxygen. Wean as possible. Currently weaned to 3L via nasal cannula.
Continue with supportive measures.
Monitor white count and temperatures.
CXR in 4 to 6 weeks time.
Little more to offer from a Infectious disease standpoint.
Will see again at your request
����������������������������������������������������������
Chief Complaint
-: Other (Covid-19)
Subjective / Review of Systems
Review of Systems: No Fever and No Chills
Vital Signs / Physical Exam
Vital Signs
Vital Signs
Temp Pulse Resp BP Pulse Ox
97.5 F 98 16 106/66 92
12/19/23 07:40 12/19/23 07:40 12/19/23 07:40 12/19/23 07:40 12/19/23 07:40
Physical Exam
Constitutional: No Acute Distress, Comfortable, Chronically Ill and Non-toxic
Cardiovascular: S1/S2; Negative S3/S4
Pulmonary: Coarse and Non Labored
Gastrointestinal: Soft and Non Distended
Neurological: Awake and Alert
Psychological: Calm
Objective Data
Lab Data
Lab Results
12/17/23 04:34
12/19/23 06:23
Estimated Creat Clear 67 ml/min 12/19/23 06:23
Lactic Acid Cancelled 12/07/23 20:45
Total Bilirubin 1.0 mg/dl (0.2-1.3) 12/08/23 04:24
AST 36 U/L (14-36) 12/08/23 04:24
ALT 17 U/L (0-35) 12/08/23 04:24
Alkaline Phosphatase 295 U/L (38-126) H 12/08/23 04:24
Most recent labs reviewed.
Micro Results:
12/07/23 16:45 Blood Culture - Final
Blood/Venous Coagulase neg. staphylococcus
Additional testing on request
Gram Stain - Final
12/07/23 16:45 Blood Culture - Final
Blood/Venous No Growth - Final Report
12/07/23 22:03 MRSA Screen - Final
Nose No Methicillin Resistant Staphylococcus aureus isolated.
Imaging:
12/09/2023 CXR (portable): Unchanged small left basilar opacities.
12/07/2023 CXR (portable): Small bilateral pleural effusions. Bibasilar opacities may represent atelectasis or mild viral pneumonia. Please see full dictation for additional detail.
--- NOTE | 2023-12-19 14:36 | W.PN.HOSP.TC ---
Today's Communication/Plan
-
home O2 eval
SNF vs home VN
Assessment / Plan
Assessment / Plan
Assessment:
Acute TME - Multifactorial etiology, including respiratory failure, COVID infection, etc. Suspect her mental status is back to baseline now.
Acute hypoxic respiratory failure - multifactorial from COVID-19 infection, acute CHF. Oxygenation improving, down to 2 L. Continue to wean. home O2 testing.
Acute CHF preserved EF exacerbation - BNP was greater than 27,000 on admission. Echocardiogram done 12/08 showed LVEF 60 to 65%, moderate to severe MR, moderate TR. Cardiology evaluated the patient and signed off. Cardiology recommends conservative
treatment as she is a poor candidate for aggressive cardiac measures.
Weight is 71 kg today, coming down. Continue Lasix p.o.
Non-[place] trop elevation - in setting of Acute CHF, COVID, Hypoxia. Troponin has peaked.
Viral Septic shock from COVID - shock resolved. Midodrine changed to as needed only.
COVID-19 infection - completed course of Paxlovid. completed 10 days of steroids. Off isolation now. She is not vaccinated. Dr. Roemo spoke with patient and son today, recommend vaccination in 3 months.
Hypokalemia - resolved.
Hypervolemic hyponatremia - resolved.
Parox A. Fib - continue BB, now on oral amiodarone, no OAC due to hx of ICH
Hx of intracranial hemorrhage with residual asphasia/dysphasia
- continue Keppra prophylaxis
- PT/OT/ST
Chronic normocytic anemia - hemoglobin relatively stable. Outpatient follow-up.
Hypothyroidism - continue levothyroxine. TSH 2.47.
Bipolar disorder
Anxiety/ADHD/Depression
- continue Trazodone/Zyprexa
Hyperlipidemia - on Lipitor.
Essential HTN - hold Triamterene/HCTZ due to hyponatremia. Blood pressure relatively stable.
sacrum stage 2 PI and right and left heel unstageable wounds, POA
Right heel unstageable ulcer with necrosis -appreciate podiatry input. Recommend local wound care. Does not recommend surgery as it will worsen the wound, increase risk of infection. Offloading of the heels recommended. Discussed with patient's
son.
Ambulatory dysfunction - family reports she has not walked since September. She is an assist of 2. Requires Savana lift to wheelchair. Continue PT/OT.
DNR
Dispo - SNF vs home/VN pending family arrangements/decision.
Anticipated Discharge: Within 24 hours
Subjective/Interval History
-
Date of Service: December 19, 2023
resting comfortably, no new complaints
remains on 2L NC
Objective Data
-
Labs:
Laboratory Results
12/19/23
06:23
Sodium 138
Potassium 3.9
Chloride 103
Carbon Dioxide 34 H
BUN 21 H
Creatinine 0.4 L
Glucose 73
Calcium 8.1 L
Vital Signs:
Vital Signs
Temp Pulse Resp BP Pulse Ox
97.5 F 98 16 106/66 92
12/19/23 07:40 12/19/23 07:40 12/19/23 07:40 12/19/23 07:40 12/19/23 07:40
I&O
12/18/23 12/19/23 12/20/23
06:59 06:59 06:59
Intake Total 480 / 480 540 / 540
Balance 480 / 480 540 / 540
Physical Exam
-
General: No Apparent Distress
HEENT: Normocephalic and Atraumatic
Respiratory: Negative Wheezes
GI: Soft and Nontender
Genito-urinary: No Costovertebral Tender
Neuro: AO x 3
Hematologic / Lymphatic: No Lymphadenopathy
Psych: Calm
Data Reviewed
-
Total Time Spent with Patient (in minutes): 45
Labs: Labs Reviewed by me
[2023-12-19 15:38] VITALS: BP 113/91
[2023-12-19 15:43] VITALS: O2SAT 88
--- NOTE | 2023-12-19 15:44 | RESPNOTE ---
Patient unable to ambulate at baseline as per MD note and family. Patient's pulse ox at rest is 87-88%. 1L nasal cannula placed on patient; o2 saturation improved to 96-98%. Case management notified of results.
[2023-12-19 15:55] VITALS: BP 134/70; O2SAT 94
[2023-12-19 16:15] VITALS: BP 134/70; PULSE 69; O2SAT 93
[2023-12-19] MEDS: TYLENOL 650 MG PO (16:44)
[2023-12-19] MEDS: LOVENOX 40 MG SC (18:34)
[2023-12-19] MEDS: LIPITOR 10 MG PO (21:24)
[2023-12-19] MEDS: DESYREL 25 MG PO (21:24)
[2023-12-19 23:00] VITALS: BP 104/71
[2023-12-20] MEDS: SYNTHROID 50 MCG PO (05:43)
[2023-12-20 06:00] VITALS: BMI 27.0
[2023-12-20 08:00] VITALS: BP 139/80
[2023-12-20] MEDS: DAKIN'S SOLUTION 0.125% 1/4 STRENGTH 1 ML TOPICAL (08:00)
[2023-12-20] MEDS: VITAMIN C 1000 MG PO ×2 (08:00→20:03)
[2023-12-20] MEDS: ZYPREXA 2.5 MG PO ×2 (08:00→20:03)
[2023-12-20] MEDS: PACERONE 200 MG PO (08:00)
[2023-12-20] MEDS: ARIMIDEX 1 MG PO (08:00)
[2023-12-20] MEDS: VITAMIN D3 (cholecalciferol) 25 MCG PO (08:00)
[2023-12-20] MEDS: DESENEX/MITRAZOL/ZEASORB 1 APPLIC TOPICAL ×2 (08:00→20:03)
[2023-12-20] MEDS: KCL 20 MEQ PO ×2 (08:00→20:02)
[2023-12-20] MEDS: TENORMIN 50 MG PO (08:00)
[2023-12-20] MEDS: KEPPRA 500 MG PO ×2 (08:00→20:03)
[2023-12-20] MEDS: LASIX 20 MG PO (08:00)
--- NOTE | 2023-12-20 15:26 | CM ---
Addendum entered by Jennifer Arias 12/20/23 17:41:
[facility] for 3 [facility] at [facility], 12/21 to 12/23, Auth [id number]. Message left for Maryse at [place] [facility].
Addendum entered by Jennifer Arias 12/20/23 17:00:
Patient's son toured [facility] and is agreeable to this facility, case advocate reached out to patient's insurance for Auth.
Original Note:
graphic design manager reviewed patient's chart and case advocate is still attempting to place patient in a skilled facility, patient has been denied at [facility], [facility], [facility], [facility],
[facility], [facility], [facility], [facility]. Referrals sent to [facility] in [place], [facility], and [facility] and will wait on
a determination.
Plan; Skilled placement.
--- NOTE | 2023-12-20 15:50 | W.PN.HOSP.TC ---
Today's Communication/Plan
-
plan for home/VN if final SNF referrals result in denial
Assessment / Plan
Assessment / Plan
Assessment:
Acute TME - Multifactorial etiology, including respiratory failure, COVID infection, etc. Suspect her mental status is back to baseline now.
Acute hypoxic respiratory failure - multifactorial from COVID-19 infection, acute CHF. Oxygenation improving, down to 2 L. Continue to wean.
Patient is in need of oxygen at 2 liters/minute via nasal cannula continuously due to pulse oximetry of 87% on room air at rest. Oxygen will help to improve hypoxemia. Patient is mobile within the home. Diuretic therapy has been tried and is
ineffective in treating hypoxemia related symptoms. Oxygen is needed to improve symptoms.
Acute CHF preserved EF exacerbation - BNP was greater than 27,000 on admission. Echocardiogram done 12/08 showed LVEF 60 to 65%, moderate to severe MR, moderate TR. Cardiology evaluated the patient and signed off. Cardiology recommends conservative
treatment as she is a poor candidate for aggressive cardiac measures.
Weight is 71 kg today, coming down. Continue Lasix p.o.
Non-[place] trop elevation - in setting of Acute CHF, COVID, Hypoxia. Troponin has peaked.
Viral Septic shock from COVID - shock resolved. Midodrine changed to as needed only.
COVID-19 infection - completed course of Paxlovid. completed 10 days of steroids. Off isolation now. She is not vaccinated. Dr. Romeo spoke with patient and son today, recommend vaccination in 3 months.
Hypokalemia - resolved.
Hypervolemic hyponatremia - resolved.
Parox A. Fib - continue BB, now on oral amiodarone, no OAC due to hx of ICH
Hx of intracranial hemorrhage with residual asphasia/dysphasia
- continue Keppra prophylaxis
- PT/OT/ST
Chronic normocytic anemia - hemoglobin relatively stable. Outpatient follow-up.
Hypothyroidism - continue levothyroxine. TSH 2.47.
Bipolar disorder
Anxiety/ADHD/Depression
- continue Trazodone/Zyprexa
Hyperlipidemia - on Lipitor.
Essential HTN - hold Triamterene/HCTZ due to hyponatremia. Blood pressure relatively stable.
sacrum stage 2 PI and right and left heel unstageable wounds, POA
Right heel unstageable ulcer with necrosis -appreciate podiatry input. Recommend local wound care. Does not recommend surgery as it will worsen the wound, increase risk of infection. Offloading of the heels recommended. Discussed with patient's
son.
Ambulatory dysfunction - family reports she has not walked since September. She is an assist of 2. Requires Savana lift to wheelchair. Continue PT/OT.
DNR
Dispo - SNF vs home/VN
Anticipated Discharge: 24 - 48 hours
Subjective/Interval History
-
Date of Service: December 20, 2023
no new complaints, remains on 1-2 L NC
Objective Data
-
Vital Signs:
Vital Signs
Temp Pulse Resp BP Pulse Ox
98.0 F 100 18 139/80 98
12/20/23 08:00 12/20/23 08:00 12/20/23 08:00 12/20/23 08:00 12/20/23 09:00
I&O
12/19/23 12/20/23 12/21/23
06:59 06:59 06:59
Intake Total 540 / 540 840 / 840
Balance 540 / 540 840 / 840
Physical Exam
-
General: No Apparent Distress
HEENT: Normocephalic and Atraumatic
Respiratory: Negative Wheezes or Rales
Cardiac: Regular Rhythm and S1/S2
GI: Soft
Genito-urinary: No Costovertebral Tender
Neuro: AO x 3
Hematologic / Lymphatic: No Lymphadenopathy
Psych: Calm
Data Reviewed
-
Total Time Spent with Patient (in minutes): 45
Labs: Labs Reviewed by me
[2023-12-20 16:00] VITALS: BP 129/87
[2023-12-20] MEDS: LOVENOX 40 MG SC (18:02)
[2023-12-20] MEDS: DESYREL 25 MG PO (21:26)
[2023-12-20] MEDS: LIPITOR 10 MG PO (21:26)
[2023-12-20 23:23] VITALS: BP 107/73
[2023-12-21 05:26] VITALS: BMI 26.8
[2023-12-21] MEDS: SYNTHROID 50 MCG PO (05:35)
[2023-12-21 07:30] VITALS: BP 122/72
[2023-12-21] MEDS: KCL 20 MEQ PO (09:17)
[2023-12-21] MEDS: KEPPRA 500 MG PO (09:19)
[2023-12-21] MEDS: LASIX 20 MG PO (09:19)
[2023-12-21] MEDS: PACERONE 200 MG PO (09:20)
[2023-12-21] MEDS: ARIMIDEX 1 MG PO (09:20)
[2023-12-21] MEDS: VITAMIN C 1000 MG PO (09:20)
[2023-12-21] MEDS: ZYPREXA 2.5 MG PO (09:20)
[2023-12-21] MEDS: VITAMIN D3 (cholecalciferol) 25 MCG PO (09:21)
[2023-12-21] MEDS: TENORMIN 50 MG PO (09:21)
--- NOTE | 2023-12-21 12:16 | CM ---
Patient has been accepted and approved for skilled placement at [facility]. Patient will transfer by ambulance, logistics manager received a call this morning from [facility] that confirmed Auth from yesterday. Patient
was approved for 3 days 12/21 to 12/23, Ref # [id number], with Bren Coombs [phone], .
Plan; Patient to transfer to [facility]
Report [phone]
[2023-12-21] MEDS: DAKIN'S SOLUTION 0.125% 1/4 STRENGTH 473 ML TOPICAL (12:46)
[2023-12-21] MEDS: DESENEX/MITRAZOL/ZEASORB 1 APPLIC TOPICAL (12:46)
--- NOTE | 2023-12-21 13:36 | W.PN.HOSP.TC ---
Today's Communication/Plan
-
dc to SNF today
Assessment / Plan
Assessment / Plan
Assessment:
Acute TME - Multifactorial etiology, including respiratory failure, COVID infection, etc. Suspect her mental status is back to baseline now.
Acute hypoxic respiratory failure - multifactorial from COVID-19 infection, acute CHF. Oxygenation improving, down to 2 L. Continue to wean.
Acute CHF preserved EF exacerbation - BNP was greater than 27,000 on admission. Echocardiogram done 12/08 showed LVEF 60 to 65%, moderate to severe MR, moderate TR. Cardiology evaluated the patient and signed off. Cardiology recommends conservative
treatment as she is a poor candidate for aggressive cardiac measures.
Weight is 71 kg today, coming down. Continue Lasix p.o.
Non-[place] trop elevation - in setting of Acute CHF, COVID, Hypoxia. Troponin has peaked.
Viral Septic shock from COVID - shock resolved. Midodrine changed to as needed only.
COVID-19 infection - completed course of Paxlovid. completed 10 days of steroids. Off isolation now. She is not vaccinated. Dr. Romeo spoke with patient and son today, recommend vaccination in 3 months.
Hypokalemia - resolved.
Hypervolemic hyponatremia - resolved.
Parox A. Fib - continue BB, now on oral amiodarone, no OAC due to hx of ICH
Hx of intracranial hemorrhage with residual asphasia/dysphasia
- continue Keppra prophylaxis
- PT/OT/ST
Chronic normocytic anemia - hemoglobin relatively stable. Outpatient follow-up.
Hypothyroidism - continue levothyroxine. TSH 2.47.
Bipolar disorder
Anxiety/ADHD/Depression
- continue Trazodone/Zyprexa
Hyperlipidemia - on Lipitor.
Essential HTN - hold Triamterene/HCTZ due to hyponatremia. Blood pressure relatively stable.
sacrum stage 2 PI and right and left heel unstageable wounds, POA
Right heel unstageable ulcer with necrosis -appreciate podiatry input. Recommend local wound care. Does not recommend surgery as it will worsen the wound, increase risk of infection. Offloading of the heels recommended. Discussed with patient's
son.
Ambulatory dysfunction - family reports she has not walked since September. She is an assist of 2. Requires Savana lift to wheelchair. Continue PT/OT.
DNR
Dispo - SNF today
More than 30 minutes spent in discharge including
Final examination of the patient
Summarizing hospital stay
Instructions for continuing care to all relevant caregivers
Preparation of discharge records, prescriptions, and referral forms
Total time spent (in minutes): 40
Anticipated Discharge: Today
Subjective/Interval History
-
Date of Service: December 21, 2023
feels well, no complaints
Objective Data
-
Vital Signs:
Vital Signs
Temp Pulse Resp BP Pulse Ox
98.5 F 88 20 122/72 96
12/21/23 07:30 12/21/23 07:30 12/21/23 07:30 12/21/23 07:30 12/21/23 07:30
I&O
12/20/23 12/21/23 12/22/23
06:59 06:59 06:59
Intake Total 840 / 840 420 / 420
Balance 840 / 840 420 / 420
Physical Exam
-
General: No Apparent Distress
HEENT: Normocephalic and Atraumatic
Respiratory: Negative Wheezes or Rales
Cardiac: Regular Rhythm and S1/S2
GI: Soft and Nontender
Genito-urinary: No Costovertebral Tender
Neuro: AO x 3
Hematologic / Lymphatic: No Lymphadenopathy
Psych: Calm
Data Reviewed
-
Total Time Spent with Patient (in minutes): 47
Labs: Labs Reviewed by me
--- NOTE | 2023-12-21 13:41 | W.DS.TRANS ---
DC Summary - Insurance Processor
-
Discharge Instructions:
Discharge Diagnosis/Procedures septic shock from COVID-19 infection with
hypoxia, acute CHF
Diet 2 Gram Sodium,Restrict fluids to 64 oz
Activity As tolerated
Other Services OT,PT
Instructions: *PCP/Other [employer] Heart Failure Instructions
Stand-Alone Forms:
Changes to Home Medications: Yes
Discharge Medications:
DC Medications w/original date entered in [facility]
acetaminophen 325 mg tablet 650 mg PO Q4H PRN mild pain/temp>100F 12/07/23
anastrozole 1 mg tablet 1 mg PO DAILY Mental Health/Anxiety 12/07/23
ascorbic acid (vitamin C) 1,000 mg tablet 1,000 mg PO BID Supplement 12/07/23
atorvastatin 10 mg tablet 10 mg PO HS High Cholesterol 12/07/23
cholecalciferol (vitamin D3) 25 mcg (1,000 unit) tablet (Vitamin D3) 25 mcg PO DAILY Supplement 12/07/23
levetiracetam 100 mg/mL oral solution 500 mg PO BID Seizures 12/07/23
levothyroxine 50 mcg tablet (Synthroid) 50 mcg PO DAILY Thyroid 12/07/23
olanzapine 2.5 mg tablet 2.5 mg PO BID Mental Health/Anxiety 12/07/23
triamcinolone acetonide 0.1 % topical cream 1 applic topical Q12H PRN rash/psoriasis 12/07/23
amiodarone 200 mg tablet (Pacerone) 200 mg PO DAILY #30 tabs 12/21/23
atenolol 50 mg tablet 50 mg PO DAILY #30 tabs 12/21/23
furosemide 20 mg tablet 20 mg PO DAILY #30 tabs 12/21/23
midodrine 5 mg tablet 10 mg PO TID@0800,1300,1800 PRN SBP<100 #90 tabs 12/21/23
potassium chloride 20 mEq tablet,extended release(part/cryst) 20 meq PO BID #60 tabs 12/21/23
trazodone 50 mg tablet 25 mg PO HS #15 tabs 12/21/23
Home Medication Changes
Atenolol to 50mg
Amio added
Triamterene/HCTZ stopped; Lasix started with KCL
Pending Results: No
Total time spent discharging patient (in min): 40
== END 2023-12-21 16:17 | DRG 871 ==
LOC: 4 WEST ACU 18:42
PROVIDERS: Hospitalist; Nurse Practitioner Family; Physician Assistant Medical; ADMITTING PHYSICIAN Internal Medicine; CONSULT PHYSICIAN Internal Medicine Infectious Disease; CONSULT PHYSICIAN Podiatrist Foot Surgery; EMERGENCY PHYSICIAN Emergency Medicine; FAMILY PHYSICIAN Internal Medicine; OTHER PHYSICIAN Internal Medicine
DX: A41.89 Other specified sepsis (principal); G92.8 Other toxic encephalopathy; U07.1 COVID-19; R65.21 Severe sepsis with septic shock; J96.01 Acute respiratory failure with hypoxia; J12.82 Pneumonia due to coronavirus disease 2019; E87.1 Hypo-osmolality and hyponatremia; F03.93 Unspecified dementia, unspecified severity, with mood disturbance; F03.94 Unspecified dementia, unspecified severity, with anxiety; G81.91 Hemiplegia, unspecified affecting right dominant side; I5A Non-ischemic myocardial injury (non-traumatic); I50.9 Heart failure, unspecified; I11.0 Hypertensive heart disease with heart failure; Z66 Do not resuscitate; E87.6 Hypokalemia; I48.0 Paroxysmal atrial fibrillation; D64.9 Anemia, unspecified; E03.9 Hypothyroidism, unspecified; F31.9 Bipolar disorder, unspecified; F90.9 Attention-deficit hyperactivity disorder, unspecified type; C50.919 Malignant neoplasm of unspecified site of unspecified female breast; L89.619 Pressure ulcer of right heel, unspecified stage; E78.00 Pure hypercholesterolemia, unspecified; L89.152 Pressure ulcer of sacral region, stage 2
CPT/HCPCS: 71045; 73650; 80048; 80053; 80061; 82248; 82607; 82728; 82746; 83540; 83550; 83605; 83735; 83880; 84145; 84443; 84484; 85025; 85027; 87040; 87070; 87147; 87205; 87811; 92610; 93005; 93306; 93922; 94761; 96365; 97163; 97167; 97530; 97535; 99285